=== PATIENT | female | born 1945 | race Caucasian/White ===

== ENCOUNTER 2016-04-05 16:02 | Outpatient (CLI) | payer MEDICARE, OTHER ==
[2016-04-05 16:50] LABS: #Basophils 0.1 thou/uL (0.0-0.2); #Eosinphils 0.5 thou/uL (0.0-0.7); #Lymphocytes 3.5 thou/uL (1.20-3.40); #Monocytes 0.6 thou/uL (0.11-0.59); #Neutrophils 4.2 thou/uL (1.40-6.50); %Basophils 1.1 % (0.0-1.0); %Eosinophils 5.9 % (0.0-10.0); Hematocrit 40.4 % (36.0-47.0); Mean Platelet Volume 7.6 fL (7.4-10.4); Red Blood Cell (RBC) Count 4.17 mill/uL (4.20-5.40); White Blood Cell (WBC) Count 8.9 thou/uL (4.8-10.8)
[2016-04-05 17:01] LABS: ALT (SGPT) 15 U/L (0-55); AST (SGOT) 8 U/L (5-34); Alkaline Phosphatase 58 U/L (40-150); Anion Gap 14 mmol/L (10-20); BUN (Urea Nitrogen) 12 mg/dL (9.8-20.1); Bilirubin, Total 0.3 mg/dL (0.2-1.2); Calc. Creatinine Clearance 0 mL/min (70-130); Calcium 8.8 mg/dL (7.8-10.44); Carbon Dioxide 27 mmol/L (23-31); Chloride 105 mmol/L (98-107); Estimated GFR-MDRD 82; Globulin 2.9 g/dL (2.4-3.5); LDL Cholesterol, Calculated 60 mg/dL; Protein, Total 6.6 g/dL (5.8-8.1)
[2016-04-05 17:03] LABS: Hemoglobin A1c 7.5 % (4.0-6.0)
== END 2016-04-05 16:03 | disposition home or self-care (01) ==
LOC: HPCALD 16:02
PROVIDERS: ATTEND Family Medicine
DX: E11.9 Type 2 diabetes mellitus without complications (principal); I10 Essential (primary) hypertension; E78.5 Hyperlipidemia, unspecified; R53.83 Other fatigue
CPT/HCPCS: 36415; 80053; 80061; 82607; 83036; 84443; 85025

== ENCOUNTER 2016-04-12 14:37 | Emergency (ER) | payer MEDICARE, OTHER ==
[2016-04-12 15:31] LABS: #Basophils 0.1 thou/uL (0.0-0.2); #Eosinphils 0.4 thou/uL (0.0-0.7); #Monocytes 0.6 thou/uL (0.11-0.59); %Basophils 1.3 % (0.0-1.0); %Eosinophils 5.4 % (0.0-10.0); %Monocytes 7.3 % (0.0-10.0); Hematocrit 38.8 % (36.0-47.0); Red Blood Cell (RBC) Count 4.13 mill/uL (4.20-5.40); White Blood Cell (WBC) Count 8.1 thou/uL (4.8-10.8)
[2016-04-12 15:44] LABS: Lactic Acid - Sepsis 1.5 mmol/L (0.5-2.2)
[2016-04-12 15:45] LABS: PTT 29.6 SEC (22.9-36.1); Prothrombin Time 13.7 SEC (12.0-14.7)
[2016-04-12 15:46] LABS: ALT (SGPT) 10 U/L (0-55); AST (SGOT) 10 U/L (5-34); Alkaline Phosphatase 59 U/L (40-150); Anion Gap 14 mmol/L (10-20); BUN (Urea Nitrogen) 13 mg/dL (9.8-20.1); Bilirubin, Total 0.2 mg/dL (0.2-1.2); Calc. Creatinine Clearance 0 mL/min (70-130); Calcium 8.8 mg/dL (7.8-10.44); Carbon Dioxide 26 mmol/L (23-31); Chloride 101 mmol/L (98-107); Estimated GFR-MDRD 67; Globulin 3.1 g/dL (2.4-3.5); Protein, Total 6.7 g/dL (5.8-8.1)
[2016-04-12 15:49] LABS: Troponin I Less than 0.010 ng/mL (< 0.028)
[2016-04-12 16:24] LABS: CK (CPK) 41 U/L (29-168)
[2016-04-12 17:04] LABS: Bilirubin Negative (Negative); Blood, Urine Negative (Negative); Glucose, Urine (Dipstick) Negative (Negative); Ketone, Urine Negative (Negative); Nitrite Negative (Negative); Protein, Urine (Dipstick) Negative (Neg-Trace); Urobilinogen 0.2 mg/dL (0.2-1.0)
[2016-04-12 17:09] LABS: Bacteria/HPF Rare-Few HPF (None Seen); RBC/HPF 0-3 HPF (0-3); Squamous Epithelial 0-3 HPF (0-3); WBC/HPF 0-3 HPF (0-3)
--- NOTE | 2016-04-12 19:04 | PICIS ---
[facility] EMERGENCY RECORD TRIAGE (TueApr 12, 2016 14:39 KMOR) PATIENT: NAME: Elinor Chou, AGE: 70, GENDER: female, : Tue1945, TIME OF GREET: TueApr 12, 2016 14:38, PREFERRED LANGUAGE: Colombian, ETHNICITY: Not or , ECODE BILLING MAP: [facility], SSN: [id number], Zip Code: [address], KG WEIGHT: 101.5, PHONE: , , , PERSON ID: [id number], PAYMENT: X Medicare, PCP: MD Lentz Kyle. (TueApr 12, 2016 14:39 KMOR) COMPLAINT: Shortness of Breath. (TueApr 12, 2016 14:39 KMOR) ADMISSION: URGENCY: 2 Emergent, ADMISSION SOURCE: Home, AMBULANCE: [facility], TRANSPORT: AMBULANCE - [facility], BED: ER -01. (TueApr 12, 2016 14:39 KMOR) ASSESSMENT: Assessment: A&OX4. RR EVEN AND UNLABROED., Symptoms began 4 hours ago. (15:03 KMOR) PAIN: Patient complains of pain described as, aching, on a scale 0-10 patient rates pain as 7, Location BACK. (15:03 KMOR) IMMUNIZATIONS: Flu vaccine up to date, Tetanus not up to date, Pneumococcal vaccine up to date. (15:03 KMOR) SIRS SCORING: Heart Rate 55-109 (0), Temp range 96.8-101.1 (0), respiratory rate 12-24 (0), Mental Status altered: no (0), Infection or Suspected Infection: No. (15:03 KMOR) PROVIDERS: TRIAGE NURSE: Cheri Valadez RN. (TueApr 12, 2016 14:39 KMOR) VITAL SIGNS: BP 126/79, Pulse 62, Resp 20, Temp 97.9, (Oral), Pain 7, O2 Sat 92, on Room Air, Time 04/12/2016 14:38. (14:38 KMOR) PREVIOUS VISIT ALLERGIES: erythromycin, Flexeril, Penicillins. (TueApr 12, 2016 14:39 KMOR) erythromycin, Flexeril, Penicillins. (15:03 KMOR) KNOWN ALLERGIES erythromycin Flexeril Penicillins CURRENT MEDICATIONS (TueApr 13, 2016 07:15 KMOR) Unable to obtain VITAL SIGNS VITAL SIGNS: BP: 126/79, Pulse: 62, Resp: 20, Temp: 97.9 (Oral), Pain: 7, O2 sat: 92 on Room Air, Time: 04/12/2016 14:38. (14:38 KMOR) BP: 123/68, Pulse: 61, Resp: 16, Pain: 7, O2 sat: 99 on 2L Oxygen, Time: 04/12/2016 15:00. (15:00 KMOR) Pulse: 64, Resp: 17, Pain: 7, Time: 04/12/2016 16:04. (16:04 KMOR) BP: 110/46, O2 sat: 100 on 2L Oxygen, Time: 04/12/2016 16:05. (16:05 KMOR) BP: 148/79, Pulse: 62, Resp: 17, Pain: 5, O2 sat: 99 on 2L Oxygen, Time: 04/12/2016 17:01. (17:01 KMOR) BP: 124/43, Pulse: 61, Resp: 15, Pain: sleeping, O2 sat: 99 on 2L Oxygen, Time: 04/12/2016 17:00. (17:00 KMOR) BP: 124/47, Pulse: 61, Resp: 16, Pain: 0, O2 sat: 99 on 2L Oxygen, Time: &a-1R&a+25V*p+0X*g9157Z*c202B*c15G*c2P*p-0X&a-25V&a+1R Name: Elinro Chou : 1945 F70 MedRec: [id number] AcctNum: [id number] Prepared: TueApr 13, 2016 09:28 by Interface Page 1 of 13 pMD [facility] EMERGENCY RECORD 04/12/2016 17:30. (17:30 KMOR) BP: 139/63, Pulse: 63, Resp: 16, Pain: 0, O2 sat: 99 on 2L Oxygen, Time: 04/12/2016 18:30. (18:30 KMOR) NURSING ASSESSMENT: HEAD-TO-TOE (17:12 KMOR) CONSTITUTIONAL: Patient arrives, via stretcher, Unsteady gait, Lift to cart, History obtained from patient, Patient appears comfortable, Patient cooperative, Patient alert, Oriented to person, place and time, Skin warm, Skin dry, Skin normal in color, Mucous membranes pink, Mucous membranes moist, Patient is well-groomed, Patient complains of Shortness of breath, EMS called to house for increased right sided weakness over past 3 days and decreased O2 saturation. Patient reports recently not feeling well. PAIN: aching pain, chronic back, on a scale 0-10 patient rates pain as 5. SKIN: Skin assessment findings include skin warm, Skin dry, Skin normal in color, Inspection findings include: No pressure ulcer to the shoulder, Inspection findings include no pressure ulcer to the elbow, Inspection findings include no pressure ulcer to the heel, Inspection findings include no pressure ulcer, Inspection findings include no pressure ulcer, Inspection findings include redness, to bilateral lower legs, Inspection findings include swelling, to right side of face. NEURO: Pupils equally round and reactive to light, Left pupil 3 mm in size, Right pupil 3 mm in size, Able to close eyes, Face symmetrical, Speech normal, Ptosis, to bilateral eyes, Facial droop, on the right, hx cva, GCS:, Eye opening: (4) - Spontaneous, Verbal: (5) - Oriented/conversive, Motor: (6) - Obeys commands/Spontaneous, GCS Total: 15, Associated with weakness. ENT: Ear assessment findings include ear normal to inspection, Nasal assessment findings include nose normal to inspection, Sinuses normal, Nasal mucosa normal, Mouth and throat assessment findings include mouth inspection normal, Uvula normal, Tonsils normal, Mucous membranes pink, and moist, Able to swallow, Speech normal. RESPIRATORY/CHEST: Lungs auscultated, Breath sounds with rhonchi, to bilateral lower lobes, Respiratory assessment findings include respiratory effort easy, Respirations regular, Conversing normally, Neck and chest exam findings include trachea midline, Chest expansion equal, Chest movement symmetrical, no signs of distress, Associated with cough, loose. CARDIOVASCULAR: Cardiovascular assessment findings include heart rate normal, Heart rhythm normal sinus, Heart sounds normal, S1, S2, Left radial pulse +3(easily palpated, considered normal), Right radial pulse +3(easily palpated, considered normal), Left dorsalis pedis pulse +2(difficult to palpate), Right dorsalis pedis pulse +2(difficult to palpate), Associated with. &a-1R&a+25V*p+0X*s8793M*c202B*c15G*c2P*p-0X&a-25V&a+1R Name: Elinor Chou : 1945 F70 MedRec: [id number] AcctNum: [id number] Prepared: TueApr 13, 2016 09:28 by Interface Page 2 of 13 D [facility] EMERGENCY RECORD ABDOMEN: Abdomen assessment findings include abdomen symmetrical, Abdomen soft, no associated nausea. GENITOURINARY FEMALE: no associated urinary complaints. NOTES: Patient tolerated procedure well. NURSING PROCEDURE: BEDSIDE RADIOLOGY (15:35 KMOR) PATIENT IDENTIFIER: Patient actively involved in identification process, Patient's identity verified by patient stating name, Patient's identity verified by patient stating date. BEDSIDE RADIOLOGY: Portable chest x-ray performed. NOTES: Patient tolerated procedure well. NURSING PROCEDURE: EARLY BREASTFEEDING CARE SPECIALIST (14:39 KMOR) PATIENT IDENTIFIER: Patient actively involved in identification process, Patient's identity verified by patient stating name, Patient's identity verified by patient stating date. EARLY BREASTFEEDING CARE SPECIALIST: Cardiac monitoring indicated for shortness of breath, Patient placed on computer graphic artist, Heart rate: 62, showing normal sinus rhythm, Patient placed on non-invasive blood pressure monitor, with disposable blood pressure cuff applied, Patient placed on continuous pulse oximetry, Adult/pediatric oxisensor applied, Oxygen saturation 91%. NOTES: Patient tolerated procedure well. NURSING PROCEDURE: DISCHARGE NOTE (18:52 [facility]) DISCHARGE: Patient discharged to home, in a wheelchair, family driving, accompanied by other family member, Summary of Care printed/ provided, Patient requested and was provided an electronic copy of Discharge Instructions, Transition record given to patient, Discharge instructions given to patient, Simple or moderate discharge teaching performed, Prescriptions given and instructions on side effects given, Medication reconciliation form given, Above person(s) verbalized understanding of discharge instructions and follow-up care, Patient treated and evaluated by physician. NURSING PROCEDURE: EKG CHART (15:28 KMOR) PATIENT IDENTIFIER: Patient actively involved in identification process, Patient's identity verified by patient stating name, Patient's identity verified by patient stating date. EKG: EKG indicated for complaint of chest pain, 12 lead EKG performed on the left chest, done by VIANCA Alonzo, first EKG. FOLLOW-UP: After procedure, EKG for interpretation given to Dr. Garcia. NOTES: Patient tolerated procedure well. NURSING PROCEDURE: IV PATIENT IDENITIFIER: Patient actively involved in identification process, Patient's identity verified by patient stating name, Patient's identity verified by patient stating date. (15:43 KMOR) &a-1R&a+25V*p+0X*u2369B*c202B*c15G*c2P*p-0X&a-25V&a+1R Name: Elinor Chou : 1945 F70 MedRec: [id number] AcctNum: [id number] Prepared: TueApr 13, 2016 09:28 by Interface Page 3 of 13 pMD [facility] EMERGENCY RECORD IV SITE 1: IV therapy indicated for hydration, IV therapy indicated for medication administration, IV established, to the right wrist, using a 20 gauge catheter, in one attempt, Saline lock established, Flushed with normal saline (mls): 10cc, Labs drawn at time of placement, labeled in the presence of the patient and sent to lab. (15:43 KMOR) FOLLOW-UP SITE 1: After procedure, 2x3 ensure dressing applied, After procedure, no drainage at IV site, After procedure, no swelling at IV site, After procedure, no redness at IV site. (15:43 KMOR) IV discontinued, due to patient being discharged, catheter intact, Notes: Bleeding easily controlled. Site covered with 2X2 gauze and secured with transpore tape. (18:45 JSMI) NOTES: Patient tolerated procedure well. (15:43 KMOR) NURSING PROCEDURE: NURSE NOTES NURSES NOTES: Notes: Patient resting comfortable in bed, eyes closed, RR even and unlabored. family at bedside. arouses easily with voice. (16:04 KMOR) Patient assisted to bathroom with steady gait. (16:16 KMOR) Notes: Dr. Garcia in to discuss possible admission, pt stated she does not want to be admitted. (16:30 KMOR) Notes: Patient sleeping, RR even and unlabored. Family at bedside. Abx started, no blood cultures per ERMD. (17:09 KMOR) NURSING PROCEDURE: OXYGEN THERAPY PATIENT IDENTIFIER: Patient actively involved in identification process, Patient's identity verified by patient stating name, Patient's identity verified by patient stating date. (14:45 KMOR) OXYGEN THERAPY: Oxygen therapy indicated for desaturation, Prior to procedure, breath sounds with rhonchi, Prior to procedure, breath sounds with wheezing, to bilateral lower lobes, Oxygen saturation 91%, by adult/pediatric oxisensor, multiple pulse oximetry reading, 2L oxygen given, via nasal cannula applied, Applied by VIANCA Alonzo. (14:45 KMOR) FOLLOW-UP: After procedure, oxygen saturation 99%. (15:45 KMOR) NOTES: Patient tolerated procedure well. (14:45 KMOR) NURSING PROCEDURE: TRANSPORT TO TESTS (15:43 KMOR) PATIENT IDENTIFIER: Patient actively involved in identification process, Patient's identity verified by patient stating name, Patient's identity verified by patient stating date. TRANSPORT TO TESTS: Transport indicated to facilitate diagnosis, Patient transported to CT scan, via cart, Accompanied by x-ray extractions technician. NURSING PROCEDURE: URINE COLLECTION (16:30 KMOR) PATIENT IDENTIFIER: Patient actively involved in identification process, Patient's identity verified by patient stating name, Patient's identity verified by patient stating date. &a-1R&a+25V*p+0X*u7069V*c202B*c15G*c2P*p-0X&a-25V&a+1R Name: Elinor Chou : 1945 F70 MedRec: [id number] AcctNum: [id number] Prepared: TueApr 13, 2016 09:28 by Interface Page 4 of 13 pMD [facility] EMERGENCY RECORD URINE COLLECTION FEMALE: Urine collected by mid-stream clean catch, Output amount (mL) 150ml, urine yellow in color, and clear, Specimen labeled in the presence of the patient and sent to lab, Specimen obtained for culture labeled in the presence of the patient and sent to lab. ORDER DETAILS Order Name: B type Natriuretic Peptide, Status: Active, Time: 15:18 04/12/2016, User: ABRAHAM, - Ordered for: Sutherland, DO, Piyush, - Entered by: DO Jose Piyush - [facility] Apr 12, 2016 15:18, - Quantity: 1, Order Name: EARLY BREASTFEEDING CARE SPECIALIST ED, Status: Done, Time: 15:25 04/12/2016, User: KMOR, - Ordered for: JoseDO magan, Piyush, - Entered by: DO Jose Piyush - [facility] Apr 12, 2016 15:18, - Quantity: 1, Order Name: Cardiac Profile w/CKMB & Troponin - I, Status: Active, Time: 15:18 04/12/2016, User: MBRI, - Ordered for: Sutherland, DO, Piyush, - Entered by: DO Jose Piyush - [facility] Apr 12, 2016 15:18, - Quantity: 1, Order Name: CATH STRAIGHT ED, Status: Canceled, Time: 16:30 04/12/2016, User: KMOR, - Ordered for: Jose, DO, Piyush, - Entered by: DO Jose Piyush - [facility] Apr 12, 2016 15:18, - Quantity: 1, Order Name: CBC with Differential, Status: Active, Time: 15:18 04/12/2016, User: MBRI, - Ordered for: DO Jose Piyush, - Entered by: DO Garcia Matthew - TueApr 12, 2016 15:18, - Quantity: 1, Order Name: CK (CPK), Status: Active, Time: 15:18 04/12/2016, User: MBRI, - Ordered for: DO Jose, Piyush, - Entered by: DO Jose Piyush - [facility] Apr 12, 2016 15:18, - Quantity: 1, Order Name: Comprehensive Metabolic Panel, Status: Active, Time: 15:18 04/12/2016, User: MBRI, - Ordered for: DO Jose Piyush, - Entered by: DO Garcia Matthew - [facility] Apr 12, 2016 15:18, - Quantity: 1, Order Name: CT Brain WO Con, Status: Active, Time: 15:18 04/12/2016, User: MBRI, - Ordered for: DO Garcia Matthew, - Entered by: DO Garcia Matthew - [facility] Apr 12, 2016 15:18, - Quantity: 1, Order Name: EKG 12 Lead in Emergency Room, Status: Active, Time: 15:18 04/12/2016, User: MBRI, &a-1R&a+25V*p+0X*w8418T*c202B*c15G*c2P*p-0X&a-25V&a+1R Name: Elinor Chou : 1945 F70 MedRec: [id number] AcctNum: [id number] Prepared: TueApr 13, 2016 09:28 by Interface Page 5 of 13 pMD [facility] EMERGENCY RECORD - Ordered for: DO Garcia Matthew, - Entered by: DO Garcia Matthew - [facility] Apr 12, 2016 15:18, - Quantity: 1, Order Name: ERRT Oxygen Usage ER, Status: Active, Time: 15:18 04/12/2016, User: ABRAHAM, - Ordered for: DO Garcia Matthew, - Entered by: DO Garcia Matthew - [facility] Apr 12, 2016 15:18, - Quantity: 1, Order Name: ERRT Pulse Oximeter ER, Status: Active, Time: 15:18 04/12/2016, User: ABRAHAM, - Ordered for: DO Garcia Matthew, - Entered by: DO Garcia Matthew - [facility] Apr 12, 2016 15:18, - Quantity: 1, Order Name: Lactic Acid with repeat, Status: Active, Time: 15:18 04/12/2016, User: MBMERON, - Ordered for: DO Garcia Matthew, - Entered by: DO Garcia Matthew - [facility] Apr 12, 2016 15:18, - Quantity: 1, Order Name: Protime with INR, Status: Active, Time: 15:18 04/12/2016, User: MBRI, - Ordered for: DO Garcia Matthew, - Entered by: DO Garcia Matthew - [facility] Apr 12, 2016 15:18, - Quantity: 1, Order Name: PTT, Status: Active, Time: 15:18 04/12/2016, User: MBRI, - Ordered for: DO Garcia Matthew, - Entered by: DO Garcia Matthew - TueApr 12, 2016 15:18, - Quantity: 1, Order Name: SALINE LOCK, Status: Done, Time: 15:25 04/12/2016, User: JAMES, - Ordered for: DO Garcia Matthew, - Entered by: DO Garcia Matthew - [facility] Apr 12, 2016 15:18, - Quantity: 1, Order Name: Urinalysis w/ Rflx Microscopic, Status: Active, Time: 15:18 04/12/2016, User: ABRAHAM, - Ordered for: DO Garcia Matthew, - Entered by: DO Garcia Matthew - [facility] Apr 12, 2016 15:18, - Quantity: 1, Order Name: XR Chest 1 View Portable, Status: Active, Time: 15:18 04/12/2016, User: ABRAHAM, - Ordered for: DO Garcia Matthew, - Entered by: DO Garcia Matthew - TueApr 12, 2016 15:18, - Quantity: 1. MEDICATION ADMINISTRATION SUMMARY Drug Name: Levaquin in 5 % dextrose, Dose Ordered: 750 mg, Route: IV Piggy Back, Status: Given, Time: 17:08 04/12/2016, Detailed record available in Medication Service section. MEDICATION SERVICE &a-1R&a+25V*p+0X*r9295V*c202B*c15G*c2P*p-0X&a-25V&a+1R Name: Elinor Chou : 1945 F70 MedRec: [id number] AcctNum: [id number] Prepared: TueApr 13, 2016 09:28 by Interface Page 6 of 13 pMD [facility] EMERGENCY RECORD Levaquin in 5 % dextrose: Order: Levaquin in 5 % dextrose (levofloxacin/dextrose 5 % in water) - Dose: 750 mg : IV Piggy Back Ordered by: Piyush Garcia DO Entered by: Piyush Garcia DO TueApr 12, 2016 16:37 , Acknowledged by: Cheri Valadez RN TueApr 12, 2016 16:44 Documented as given by: Cheri Valadez RN TueApr 12, 2016 17:08 Patient, Medication, Dose, Route and Time verified prior to administration. Amount given: 750mg, IV SITE #1 IVPB or drip, initial infusion, Premixed, Connections checked prior to administration, Line traced prior to administration, Catheter placement confirmed via flush prior to administration, IV site without signs or symptoms of infiltration during medication administration, No swelling during administration, No drainage during administration, IV flushed after administration, Correct patient, time, route, dose and medication confirmed prior to administration, Patient advised of actions and side-effects prior to administration, Allergies confirmed and medications reviewed prior to administration, Patient in position of comfort, Side rails up, Cart in lowest position, Family at bedside. : Follow Up : _IV SITE #1:_, Medication infusion discontinued, on TueApr 12, 2016 18:45, Total infusion time IV site 1 1 hour, 40 minutes, ., Total amount infused: 150, IV Discontinued with catheter intact, IV Line flushed after administration. (18:45 JSMI) HPI WEAK-DIZZY (18:31 MBRI) CHIEF COMPLAINT: Patient presents for evaluation of weakness, Patient presents for evaluation of Pt states not feeling well for over a week now. Home health nursing thought that the patient was showing some increased weakness on her right side where she has had long standing issues due to prior CVA event. Pt states having a cough with increasing production of thick, green sputum. HISTORIAN: History provided by patient, History provided by patient's family, History provided by patient's caregiver. LOCATION: Symptoms are generalized. QUALITY: Patient is alert and oriented to person, place and time, [place] coma score is 15, Pain is dull in nature, described as aching. TIME COURSE: Gradual onset of symptoms, 1, weeks ago, Symptoms are worsening. ASSOCIATED WITH: No associated ataxia, No associated chest pain, No associated chills, No associated ear pain, No associated fever, No associated gait disturbance, No associated headache, No associated nausea, No associated palpitations, No associated vomiting, No associated visual changes, No associated upper respiratory infection, Denies any other complaints. EXACERBATED BY: Patient's condition exacerbated by nothing. RELIEVED BY: Patient's condition relieved by nothing. ROS (18:33 MBRI) &a-1R&a+25V*p+0X*j2699K*c202B*c15G*c2P*p-0X&a-25V&a+1R Name: Elinor Chou : 1945 F70 MedRec: [id number] AcctNum: [id number] Prepared: TueApr 13, 2016 09:28 by Interface Page 7 of 13 pMD [facility] EMERGENCY RECORD CONSTITUTIONAL: Historian denies chills, reports fatigue, denies fever, reports weakness. EYES: Negative eye review of systems, Historian denies eye pain, denies eye redness, denies eye discharge. ENT: Negative ears, nose, throat review of systems, Historian denies otalgia, denies otorrhea, denies rhinorrhea, denies sinus pain, denies sore throat. CARDIOVASCULAR: Historian denies chest pain, no radiation, Historian denies diaphoresis, denies dyspnea on exertion, reports edema, denies orthopnea, denies paroxysmal nocturnal dyspnea, denies syncope, denies palpitations. RESPIRATORY: Historian reports cough, reports shortness of breath, reports sputum, denies stridor, denies wheezing. GI: Historian denies abdominal pain, reports appetite changes, denies constipation, denies diarrhea, denies nausea, denies vomiting. GENITOURINARY FEMALE: Historian denies dysuria, denies frequency, denies hematuria, denies incontinence, denies urgency, denies urine output changes. MUSCULOSKELETAL: Historian reports arthralgias, denies back pain, denies deformity, denies fall, denies injury, denies joint redness, denies joint stiffness, denies joint swelling. SKIN: Historian denies cellulitis, denies induration, reports skin lesions. Pt with chronic edematous changes of the kate lower ext along with long-term chronic cellulitis in these areas. This overall has been improving with wound care and abx treatment. NEUROLOGIC: Historian denies confusion, denies dizziness, reports focal weakness, denies headache, denies mental status changes, denies paresthesias, denies vertigo. chronic of the right arm and leg. HEMO/LYMPHATIC: Normal hematologic/lymphatic system review. PSYCHIATRIC: Negative psychiatric review of systems. PAST MEDICAL HISTORY (15:03 KMOR) MEDICAL HISTORY: Flu vaccine up to date, Tetanus not up to date, Pneumococcal vaccine up to date, Notes: "throat cancer" tx with surgery, Past medical history includes cardiac history, coronary artery disease, congestive heart failure, Past medical history includes history of diabetes, Past medical history includes history of hypertension. Past medical history includes cardiac history, congestive heart failure, "Past medical history includes cardiac history, coronary artery disease, congestive heart failure, Past medical history includes history of diabetes, Past medical history includes history of hypertension. Parkinsons. stroke with right sided deficits. FEMALE SURGICAL HISTORY: Surgical history of appendectomy, Surgical history of hernia repair, Surgical history of hysterectomy, Surgical history of tubal ligation. .lumpectomy on right &a-1R&a+25V*p+0X*r9938R*c202B*c15G*c2P*p-0X&a-25V&a+1R Name: Elinor Chou : 1945 F70 MedRec: [id number] AcctNum: [id number] Prepared: TueApr 13, 2016 09:28 by Interface Page 8 of 13 pMD [facility] EMERGENCY RECORD shoulder. PSYCHIATRIC HISTORY: Psychiatric history includes, depression. SOCIAL HISTORY: Patient currently uses tobacco, smokes cigarettes, 4-5 cigs/day. Patient denies alcohol use, Patient denies drug use,. PHYSICAL EXAM (18:35 MBRI) CONSTITUTIONAL: Vital signs reviewed, Patient afebrile, Pulse normal, Blood pressure normal, Respiratory rate normal, Patient appears non toxic, Patient appears pain free, Patient alert and oriented to person, place and time. HEAD: Head exam included findings of head atraumatic, normocephalic. EYES: Eye exam included findings of eyelids normal to inspection, Pupils equally round and reactive to light, Extraocular muscles intact. ENT: Ear exam normal, Nose exam normal, Pharynx exam normal, Mouth exam normal. NECK: Neck exam included findings of normal range of motion, Trachea midline, no tenderness, no abrasions, no contusions, no ecchymosis. RESPIRATORY CHEST: Respiratory exam included findings of no respiratory distress, Breath sounds clear, No wheezing, Rales present, to the right middle lobe, to the left lower lobe, to the right lower lobe, No rhonchi, Breath sounds not diminished, Chest exam included findings of chest movement symmetrical. CARDIOVASCULAR: Cardiovascular exam included findings of heart rate regular rate and rhythm, Heart sounds normal, normal S1, normal S2, no murmurs, Carotids normal, Pedal pulses normal. ABDOMEN FEMALE: Abdominal exam included findings of abdomen nontender, no distension, no pulsatile masses, no peritoneal signs, no rigidity, no guarding, no rebound. BACK: Back exam included findings of normal inspection, no tenderness. UPPER EXTREMITY: Upper extremity exam included findings of inspection normal, Range of motion normal, Radial pulse normal, no cyanosis, no clubbing, no edema. LOWER EXTREMITY: Range of motion normal, Motor strength, 3/5 on the left, 4/5 on the right, Sensation intact, Pedal pulse normal, no cyanosis, no clubbing, Edema present, to bilateral lower extremities, pitting, no calf tenderness, chornic skin changes noted. Numerous healing lesions noted. No acute infection noted. NEURO: [place] coma scale 15, Neuro exam findings include patient oriented to person, place and time, Speech normal, Gait normal, Memory normal, Cranial nerves intact, no focal motor deficits, no focal sensory deficits, no cerebellar deficits, no nystagmus. SKIN: Skin exam included findings of skin warm, dry, and normal &a-1R&a+25V*p+0X*u6827B*c202B*c15G*c2P*p-0X&a-25V&a+1R Name: Elinor Chou : 1945 F70 MedRec: [id number] AcctNum: [id number] Prepared: TueApr 13, 2016 09:28 by Interface Page 9 of 13 pMD [facility] EMERGENCY RECORD in color. PSYCHIATRIC: Psychiatric exam included findings of patient oriented to person place and time, Normal affect. LAB INTERPRETATION (16:29 MBRI) INTERPRETATION: I reviewed the lab results. EVENTS TRANSFER: Triage to Emergency Emergency Room -01. (14:39 KMOR) Removed from Emergency Emergency Room -01. (18:49 KMOR) EKG INTERPRETATION (15:35 MBRI) 12 LEAD EKG INTERPRETATION: 12 lead EKG interpreted by Emergency Department Physician at time of study, 12 lead EKG shows, first degree AV Block, Rate (beats per minute): 60, with no ectopics, Conduction normal, ST segments normal, T waves normal, [place] normal. O2SAT INTERPRETATION (14:44 MBRI) O2SAT: Oxygen saturation interpretation: Low normal, Intervention required: patient observed, Intervention required: Oxygen administration. DOCTOR NOTES (16:39 MBRI) TEXT: Patient has been thoroughly evaluated and monitored. The patients CT Head was negative and the patients symptoms are not consistent with CVA, new-onset TIA, or SAH at this time. Patient has a stable neurological exam and monitoring here shows no changes. I will discharge home with follow-up. Explanation and discussion of findings and plan for follow-up have been discussed with the patient and family and questions answered. The patient was instructed to return to the ED if a change in status occurs prior to PCP follow-up. PROBLEM LIST No recorded problems DIAGNOSIS (16:47 MBRI) FINAL: PRIMARY: PNEUMONIA UNSPECIFIED ORGANISM. DISPOSITION PATIENT: Disposition Type: Discharge, Disposition: *Discharge Home, Condition: Improved. (17:28 MBRI) Patient left the department. (18:49 KMOR) INSTRUCTION (17:30 MBRI) DISCHARGE: PNEUMONIA (ADULT), WEAKNESS, UNK CAUSE. FOLLOWUP: [facility], [address] [place] [address], , Follow up with Primary Care Physician as scheduled. &a-1R&a+25V*p+0X*z5008I*c202B*c15G*c2P*p-0X&a-25V&a+1R Name: Elinor Chou : 1945 F70 MedRec: [id number] AcctNum: [id number] Prepared: TueApr 13, 2016 09:28 by Interface Page 10 of 13 pMD [facility] EMERGENCY RECORD SPECIAL: Please return for any further issues or concerns, we would be happy to see you. We hope you feel better soon. Follow-up with your PCP on Apr 16 at 10am. PRESCRIPTION (17:30 MBRI) Levaquin oral: TABLET : 750 mg : ORAL : Quantity: 1 Unit: tab(s) Route: ORAL Schedule: once a day Dispense: 6 May substitute. Refills: No Refills . NOTES: No refills. Mucinex DM: TABLET,EXTENDED RELEASE MULTIPHASE 12 HR : 1,200 mg-60 mg : ORAL : Quantity: 1 Unit: tab(s) Route: ORAL Schedule: every 12 hours Dispense: 20 May substitute. Refills: No Refills . NOTES: ^s=No refills No refills. Tessalon Perles: CAPSULE (HARD, SOFT, ETC.) : 100 mg : ORAL : Quantity: 1 Unit: cap(s) Route: ORAL Schedule: every 8 hours PRN Dispense: 21 May substitute. Refills: No Refills . NOTES: ^s=^s=No refills No refills No refills. IMAGING *EKG: Image captured from scanner. (18:13 KMOR) *SUPPLY CHARGE SHEET: Image captured from scanner. (18:54 JSMI) *DISCHARGE INSTRUCTIONS RECEIPT: Image captured from scanner. (18:54 JSMI) *RUN SHEET -EMS: Image captured from scanner. (18:54 JSMI) ADMIN DIGITAL SIGNATURE: VIANCA Valadez, Cheri. (TueApr 13, 2016 07:16 KMOR) DO Garcia Matthew. (TueApr 13, 2016 09:21 MBRI) RESULTS LABORATORY: CK (CPK) Collection DT: TueApr 12, 2016 15:28, CK (CPK) 41 U/L, Range (29-168). (16:30 MBRI) Comprehensive Metabolic Panel Collection DT: TueApr 12, 2016 15:28, Sodium 136 mmol/L, Range (136-145), Potassium 4.5 mmol/L, Range (3.5-5.1), Chloride 101 mmol/L, Range (98-107), Carbon Dioxide 26 mmol/L, Range (23-31), Anion Gap 14 mmol/L, Range (10-20), BUN (Urea Nitrogen) 13 mg/dL, Range (9.8-20.1), Creatinine 0.84 mg/dL, Range (0.6-1.1), Estimated GFR-MDRD 67 , Reference Range for Estimated GFR: Greater than 90, mL/min/1.73 m2 &a-1R&a+25V*p+0X*t1200O*c202B*c15G*c2P*p-0X&a-25V&a+1R Name: Elinor Chou : 1945 F70 MedRec: [id number] AcctNum: [id number] Prepared: TueApr 13, 2016 09:28 by Interface Page 11 of 13 pMD [facility] EMERGENCY RECORD NOTE: The MDRD equation has not been validated for use, with the elderly (over 70 years of age), women, patients with, serious comorbid condition or persons with extremes of body size, muscle, mass, or nutritional status. , *Glucose 250 - H mg/dL, Range (80-115), Calcium 8.8 mg/dL, Range (7.8-10.44), Bilirubin, Total 0.2 mg/dL, Range (0.2-1.2), Protein, Total 6.7 g/dL, Range (5.8-8.1), NOTE: Plasma values are generally 0.3 to 0.5 g/dL higher than serum values, due to the presence of fibrinogen. , Albumin 3.6 g/dL, Range (3.4-4.8), Globulin 3.1 g/dL, Range (2.4-3.5), Alb/Glob Ratio 1.2 g/dL, Range (1.2-2.2), Alkaline Phosphatase 59 U/L, Range (40-150), AST (SGOT) 10 U/L, Range (5-34), ALT (SGPT) 10 U/L, Range (0-55). (16:30 MBRI) B type Natriuretic Peptide Collection DT: TueApr 12, 2016 15:28, *B type Natriuretic Peptide 132.8 - H pg/mL, Range (0-100). (16:30 MBRI) Cardiac Profile w/CKMB & TropI Collection DT: TueApr 12, 2016 15:28, CKMB 2.0 ng/mL, Range (0-6.6), Troponin I Less than 0.010 ng/mL, Range (< 0.028), Reference Range , 0.00 - 0.028 ng/mL Negative 0.029 - 0.29 ng/mL , Indeterminate Greater or Equal to 0.3 ng/mL Strongly suggests DC , . (16:30 MBRI) PTT Collection DT: TueApr 12, 2016 15:28, See comment below , Anticoagulant? NONE Medical Necessity SUSPECT COAGULOPATHY , PTT 29.6 SEC, Range (22.9-36.1). (16:30 MBRI) Protime with INR Collection DT: TueApr 12, 2016 15:28, See comment below , Anticoagulant? NONE Medical Necessity SUSPECT COAGULOPATHY , Prothrombin Time 13.7 SEC, Range (12.0-14.7), INR-International Normal Ratio 1.0 , ATTENTION: READ CAREFULLY , The, recommended therapeutic ranges for oral anticoagulant treatments are: , , Low Intensity: 1.5 - 2.0 Moderate Intensity: 2.0, - 3.0 High Intensity (1): 2.5 - 3.5 &a-1R&a+25V*p+0X*c8183X*c202B*c15G*c2P*p-0X&a-25V&a+1R Name: Elinor Chou : 1945 F70 MedRec: [id number] AcctNum: [id number] Prepared: TueApr 13, 2016 09:28 by Interface Page 12 of 13 pMD [facility] EMERGENCY RECORD High, Intensity (2): 3.0 - 4.0 CRITICAL: >, 4.0 . (16:30 MBRI) Lactic Acid for Sepsis Collection DT: TueApr 12, 2016 15:28, Lactic Acid - Sepsis 1.5 mmol/L, Range (0.5-2.2). (16:30 MBRI) CBC with Differential Collection DT: TueApr 12, 2016 15:28, White Blood Cell (WBC) Count 8.1 thou/uL, Range (4.8-10.8), *Red Blood Cell (RBC) Count 4.13 - L mill/uL, Range (4.20-5.40), Hemoglobin 12.2 g/dL, Range (12.0-16.0), Hematocrit 38.8 %, Range (36.0-47.0), Mean Corpuscular Volume 94.1 fl, Range (81.0-99.0), Mean Corpuscular Hemoglobin 29.4 pg, Range (27.0-31.0), *Mean Corpuscular HGB CONC 31.3 - L g/dL, Range (32.0-36.0), *RBC Distribution Width 15.0 - H %, Range (11.5-14.5), Platelet Count 138 thou/uL, Range (130-400), Mean Platelet Volume 9.0 fL, Range (7.4-10.4), %Neutrophils 48.6 %, Range (42.0-75.0), %Lymphocytes 37.4 %, Range (21.0-51.0), %Monocytes 7.3 %, Range (0.0-10.0), %Eosinophils 5.4 %, Range (0.0-10.0), *%Basophils 1.3 - H %, Range (0.0-1.0), #Neutrophils 4.0 thou/uL, Range (1.40-6.50), #Lymphocytes 3.0 thou/uL, Range (1.20-3.40), *#Monocytes 0.6 - H thou/uL, Range (0.11-0.59), #Eosinphils 0.4 thou/uL, Range (0.0-0.7), #Basophils 0.1 thou/uL, Range (0.0-0.2). (16:30 MBRI) Urine Microscopic Collection DT: TueApr 12, 2016 17:04, RBC/HPF 0-3 HPF, Range (0-3), WBC/HPF 0-3 HPF, Range (0-3), Squamous Epithelial 0-3 HPF, Range (0-3), Bacteria/HPF Rare-Few HPF, Range (None Seen). (17:27 MBRI) Urinalysis w/ Rflx Microscopic Collection DT: TueApr 12, 2016 17:04, Color Yellow , Range (Yellow), Clarity Clear , Range (Clear), Specific Barto, Urine 1.015 , Range (1.005-1.030), pH, Urine 6.0 , Range (5.0-9.0), *Leukocyte Small - H , Range (Negative), Nitrite Negative , Range (Negative), Protein, Urine (Dipstick) Negative mg/dL, Range (Neg-Trace), Glucose, Urine (Dipstick) Negative mg/dL, Range (Negative), Ketone, Urine Negative mg/dL, Range (Negative), Urobilinogen 0.2 mg/dL, Range (0.2-1.0), Bilirubin Negative , Range (Negative), Blood, Urine Negative , Range (Negative). (17:27 MBRI) Bond: JOSEMI=VIANCA Garcia, Trish KMOR=VIANCA Valadze, Cheri MBRI=DO Garcia Matthew &a-1R&a+25V*p+0X*k1404J*c202B*c15G*c2P*p-0X&a-25V&a+1R Name: Elinor Chou : 1945 F70 MedRec: [id number] AcctNum: [id number] Prepared: TueApr 13, 2016 09:28 by Interface Page 13 of 13 pMD [facility] MEDICATION RECONCILIATION You were seen in the Emergency Department on: TueApr 12, 2016 KNOWN ALLERGIES erythromycin Flexeril Penicillins MEDICATIONS GIVEN WHILE IN THE EMERGENCY DEPARTMENT Levaquin in 5 % dextrose (levofloxacin/dextrose 5 % in water) - Dose: 750 milligram(s) : IV Piggy Back HOME MEDICATIONS Unable to obtain Notes from the emergency department Reviewed with patient PRESCRIPTIONS (3) Printed (3) Levaquin oral : TABLET : 750 mg : ORAL Quantity: 1, Unit: tab(s), Route: ORAL, Schedule: once a day, Dispense: 6 Mucinex DM : TABLET,EXTENDED RELEASE MULTIPHASE 12 HR : 1,200 mg-60 mg : ORAL Quantity: 1, Unit: tab(s), Route: ORAL, Schedule: every 12 hours, Dispense: 20 &a-1R&a+25V*p+0X*k8487O*c202B*c15G*c2P*p-0X&a-25V&a+1R Name: Elinor Chou : 1945 F70 MedRec: [id number] AcctNum: [id number] Prepared: Abilio Apr 13, 2016 09:28 by Interface pMD MTDD
--- NOTE | 2016-04-12 19:11 | ERRECORD ---
[facility] EMERGENCY RECORD HPI WEAK-DIZZY (18:31 MBRI) CHIEF COMPLAINT: Patient presents for evaluation of weakness, Patient presents for evaluation of Pt states not feeling well for over a week now. Home health nursing thought that the patient was showing some increased weakness on her right side where she has had long standing issues due to prior CVA event. Pt states having a cough with increasing production of thick, green sputum. HISTORIAN: History provided by patient, History provided by patient's family, History provided by patient's caregiver. LOCATION: Symptoms are generalized. QUALITY: Patient is alert and oriented to person, place and time, [place] coma score is 15, Pain is dull in nature, described as aching. TIME COURSE: Gradual onset of symptoms, 1, weeks ago, Symptoms are worsening. ASSOCIATED WITH: No associated ataxia, No associated chest pain, No associated chills, No associated ear pain, No associated fever, No associated gait disturbance, No associated headache, No associated nausea, No associated palpitations, No associated vomiting, No associated visual changes, No associated upper respiratory infection, Denies any other complaints. EXACERBATED BY: Patient's condition exacerbated by nothing. RELIEVED BY: Patient's condition relieved by nothing. ROS (18:33 MBRI) CONSTITUTIONAL: Historian denies chills, reports fatigue, denies fever, reports weakness. EYES: Negative eye review of systems, Historian denies eye pain, denies eye redness, denies eye discharge. ENT: Negative ears, nose, throat review of systems, Historian denies otalgia, denies otorrhea, denies rhinorrhea, denies sinus pain, denies sore throat. CARDIOVASCULAR: Historian denies chest pain, no radiation, Historian denies diaphoresis, denies dyspnea on exertion, reports edema, denies orthopnea, denies paroxysmal nocturnal dyspnea, denies syncope, denies palpitations. RESPIRATORY: Historian reports cough, reports shortness of breath, reports sputum, denies stridor, denies wheezing. GI: Historian denies abdominal pain, reports appetite changes, denies constipation, denies diarrhea, denies nausea, denies vomiting. GENITOURINARY FEMALE: Historian denies dysuria, denies frequency, denies hematuria, denies incontinence, denies urgency, denies urine output changes. MUSCULOSKELETAL: Historian reports arthralgias, denies back pain, denies deformity, denies fall, denies injury, denies joint redness, denies joint stiffness, denies joint swelling. SKIN: Historian denies cellulitis, denies induration, reports skin lesions. Pt with chronic edematous &a-1R&a+25V*p+0X*g8695N*c202B*c15G*c2P*p-0X&a-25V&a+1R Name: Elinor Chou : 1945 F70 MedRec: [id number] AcctNum: [id number] Prepared: TueApr 13, 2016 09:28 by Interface Page 1 of 5 pMD [facility] EMERGENCY RECORD changes of the kate lower ext along with long-term chronic cellulitis in these areas. This overall has been improving with wound care and abx treatment. NEUROLOGIC: Historian denies confusion, denies dizziness, reports focal weakness, denies headache, denies mental status changes, denies paresthesias, denies vertigo. chronic of the right arm and leg. HEMO/LYMPHATIC: Normal hematologic/lymphatic system review. PSYCHIATRIC: Negative psychiatric review of systems. PAST MEDICAL HISTORY (15:03 KMOR) MEDICAL HISTORY: Flu vaccine up to date, Tetanus not up to date, Pneumococcal vaccine up to date, Notes: "throat cancer" tx with surgery, Past medical history includes cardiac history, coronary artery disease, congestive heart failure, Past medical history includes history of diabetes, Past medical history includes history of hypertension. Past medical history includes cardiac history, congestive heart failure, "Past medical history includes cardiac history, coronary artery disease, congestive heart failure, Past medical history includes history of diabetes, Past medical history includes history of hypertension. Parkinsons. stroke with right sided deficits. FEMALE SURGICAL HISTORY: Surgical history of appendectomy, Surgical history of hernia repair, Surgical history of hysterectomy, Surgical history of tubal ligation. .lumpectomy on right shoulder. PSYCHIATRIC HISTORY: Psychiatric history includes, depression. SOCIAL HISTORY: Patient currently uses tobacco, smokes cigarettes, 4-5 cigs/day. Patient denies alcohol use, Patient denies drug use,. KNOWN ALLERGIES erythromycin Flexeril Penicillins CURRENT MEDICATIONS (TueApr 13, 2016 07:15 KMOR) Unable to obtain VITAL SIGNS VITAL SIGNS: BP: 126/79, Pulse: 62, Resp: 20, Temp: 97.9 (Oral), Pain: 7, O2 sat: 92 on Room Air, Time: 04/12/2016 14:38. (14:38 KMOR) BP: 123/68, Pulse: 61, Resp: 16, Pain: 7, O2 sat: 99 on 2L Oxygen, Time: 04/12/2016 15:00. (15:00 KMOR) Pulse: 64, Resp: 17, Pain: 7, Time: 04/12/2016 16:04. (16:04 KMOR) BP: 110/46, O2 sat: 100 on 2L Oxygen, Time: 04/12/2016 16:05. (16:05 KMOR) BP: 148/79, Pulse: 62, Resp: 17, Pain: 5, O2 sat: 99 on 2L Oxygen, Time: 04/12/2016 17:01. (17:01 KMOR) BP: 124/43, Pulse: 61, Resp: 15, Pain: sleeping, O2 sat: 99 on 2L Oxygen, &a-1R&a+25V*p+0X*e8166B*c202B*c15G*c2P*p-0X&a-25V&a+1R Name: Elinor Chou : 1945 F70 MedRec: [id number] AcctNum: [id number] Prepared: Abilio Apr 13, 2016 09:28 by Interface Page 2 of 5 pMD [facility] EMERGENCY RECORD Time: 04/12/2016 17:00. (17:00 KMOR) BP: 124/47, Pulse: 61, Resp: 16, Pain: 0, O2 sat: 99 on 2L Oxygen, Time: 04/12/2016 17:30. (17:30 KMOR) BP: 139/63, Pulse: 63, Resp: 16, Pain: 0, O2 sat: 99 on 2L Oxygen, Time: 04/12/2016 18:30. (18:30 KMOR) PHYSICAL EXAM (18:35 MBRI) CONSTITUTIONAL: Vital signs reviewed, Patient afebrile, Pulse normal, Blood pressure normal, Respiratory rate normal, Patient appears non toxic, Patient appears pain free, Patient alert and oriented to person, place and time. HEAD: Head exam included findings of head atraumatic, normocephalic. EYES: Eye exam included findings of eyelids normal to inspection, Pupils equally round and reactive to light, Extraocular muscles intact. ENT: Ear exam normal, Nose exam normal, Pharynx exam normal, Mouth exam normal. NECK: Neck exam included findings of normal range of motion, Trachea midline, no tenderness, no abrasions, no contusions, no ecchymosis. RESPIRATORY CHEST: Respiratory exam included findings of no respiratory distress, Breath sounds clear, No wheezing, Rales present, to the right middle lobe, to the left lower lobe, to the right lower lobe, No rhonchi, Breath sounds not diminished, Chest exam included findings of chest movement symmetrical. CARDIOVASCULAR: Cardiovascular exam included findings of heart rate regular rate and rhythm, Heart sounds normal, normal S1, normal S2, no murmurs, Carotids normal, Pedal pulses normal. ABDOMEN FEMALE: Abdominal exam included findings of abdomen nontender, no distension, no pulsatile masses, no peritoneal signs, no rigidity, no guarding, no rebound. BACK: Back exam included findings of normal inspection, no tenderness. UPPER EXTREMITY: Upper extremity exam included findings of inspection normal, Range of motion normal, Radial pulse normal, no cyanosis, no clubbing, no edema. LOWER EXTREMITY: Range of motion normal, Motor strength, 3/5 on the left, 4/5 on the right, Sensation intact, Pedal pulse normal, no cyanosis, no clubbing, Edema present, to bilateral lower extremities, pitting, no calf tenderness, chornic skin changes noted. Numerous healing lesions noted. No acute infection noted. NEURO: Nuris coma scale 15, Neuro exam findings include patient oriented to person, place and time, Speech normal, Gait normal, Memory normal, Cranial nerves intact, no focal motor deficits, no focal sensory deficits, no cerebellar deficits, no nystagmus. SKIN: Skin exam included findings of skin warm, dry, and normal in color. &a-1R&a+25V*p+0X*m8518X*c202B*c15G*c2P*p-0X&a-25V&a+1R Name: Elinor Chou : 1945 F70 MedRec: [id number] AcctNum: [id number] Prepared: Abilio Apr 13, 2016 09:28 by Interface Page 3 of 5 pMD [facility] EMERGENCY RECORD PSYCHIATRIC: Psychiatric exam included findings of patient oriented to person place and time, Normal affect. EKG INTERPRETATION (15:35 MBRI) 12 LEAD EKG INTERPRETATION: 12 lead EKG interpreted by Emergency Department Physician at time of study, 12 lead EKG shows, first degree AV Block, Rate (beats per minute): 60, with no ectopics, Conduction normal, ST segments normal, T waves normal, [place] normal. MEDICATION ADMINISTRATION SUMMARY Drug Name: Levaquin in 5 % dextrose, Dose Ordered: 750 mg, Route: IV Piggy Back, Status: Given, Time: 17:08 04/12/2016, Detailed record available in Medication Service section. DOCTOR NOTES (16:39 MBRI) TEXT: Patient has been thoroughly evaluated and monitored. The patients CT Head was negative and the patients symptoms are not consistent with CVA, new-onset TIA, or SAH at this time. Patient has a stable neurological exam and monitoring here shows no changes. I will discharge home with follow-up. Explanation and discussion of findings and plan for follow-up have been discussed with the patient and family and questions answered. The patient was instructed to return to the ED if a change in status occurs prior to PCP follow-up. PROBLEM LIST No recorded problems DIAGNOSIS (16:47 MBRI) FINAL: PRIMARY: PNEUMONIA UNSPECIFIED ORGANISM. PRESCRIPTION (17:30 MBRI) Levaquin oral: TABLET : 750 mg : ORAL : Quantity: 1 Unit: tab(s) Route: ORAL Schedule: once a day Dispense: 6 May substitute. Refills: No Refills . NOTES: No refills. Mucinex DM: TABLET,EXTENDED RELEASE MULTIPHASE 12 HR : 1,200 mg-60 mg : ORAL : Quantity: 1 Unit: tab(s) Route: ORAL Schedule: every 12 hours Dispense: 20 May substitute. Refills: No Refills . NOTES: ^s=No refills No refills. Testammy Perles: CAPSULE (HARD, SOFT, ETC.) : 100 mg : ORAL : Quantity: 1 Unit: cap(s) Route: ORAL Schedule: every 8 hours PRN Dispense: 21 May substitute. Refills: No Refills . NOTES: ^s=^s=No refills No refills &a-1R&a+25V*p+0X*r1274B*c202B*c15G*c2P*p-0X&a-25V&a+1R Name: Elinor Chou : 1945 70 MedRec: [id number] AcctNum: [id number] Prepared: TueApr 13, 2016 09:28 by Interface Page 4 of 5 pMD [facility] EMERGENCY RECORD No refills. DISPOSITION PATIENT: Disposition Type: Discharge, Disposition: *Discharge Home, Condition: Improved. (17:28 MBRI) Patient left the department. (18:49 KMOR) Bond: KMOR=VIANCA Valadez, Cheri MBRI=DO Garcia Matthew &a-1R&a+25V*p+0X*d5910Y*c202B*c15G*c2P*p-0X&a-25V&a+1R Name: Elinor Chou : 1945 70 MedRec: [id number] AcctNum: [id number] Prepared: TueApr 13, 2016 09:28 by Interface Page 5 of 5 pMD MTDD
--- NOTE | 2016-04-12 20:01 | RAD ---
PORTABLE CHEST: Date: 04-12-16 An AP portable film at 1529 is compared with an 01-18-16 study. FINDINGS: The patient is turned significantly to the side which distorts the image and makes it difficult to s ee all portions of the lungs well. Moderate cardiomegaly is present. There is no clear finding of CHF, however. There is some streaki ng to the left of the heart. This was present before but with the patient being turned it is diffic ult to assess if it is new or old. It is certainly no worse than before and probably better. IMPRESSION: Cardiomegaly and left basilar streaking. Follow up PA and lateral views would be very helpful in th is patient as many of these findings could be chronic. POS: HOME
--- NOTE | 2016-04-12 20:16 | CT ---
CT OF THE BRAIN WITHOUT CONTRAST: Date: 04-12-16 Comparison: 01-16-16 FINDINGS: The ventricles are normal in size with no shift. No intracranial bleeding, mass or edema or sign of acute stroke was found. A small area of encephalomalacia is seen between the left insular cortex a nd the internal capsule consistent with a history of a prior stroke. There were no findings strongl y suggestive of an acute event, though an MRI would be much more sensitive to such. The calvarium a ppears normal. IMPRESSION: Old left sided stroke but no acute intracranial findings. POS: HOME
== END 2016-04-12 18:42 | disposition home or self-care (01) ==
LOC: BURERS 14:37
DX: J18.9 Pneumonia, unspecified organism (principal); I11.0 Hypertensive heart disease with heart failure; I50.9 Heart failure, unspecified; I25.10 Atherosclerotic heart disease of native coronary artery without angina pectoris; E11.9 Type 2 diabetes mellitus without complications; F32.9 Major depressive disorder, single episode, unspecified; G20 Parkinson's disease; F17.210 Nicotine dependence, cigarettes, uncomplicated; Z98.51 Tubal ligation status; Z86.73 Personal history of transient ischemic attack (TIA), and cerebral infarction without residual deficits
CPT/HCPCS: 70450; 71010; 80053; 81003; 81015; 82550; 82553; 83605; 83880; 84484; 85025; 85610; 85730; 93005; 94760; 96365; 96366; J1956

== ENCOUNTER 2016-05-31 19:18 | Emergency (ER) | payer MEDICARE, OTHER ==
[~2016-05-31 19:18] MED LIST: Iopamidol 370 76% 100 ML VIAL ONE
[2016-05-31 20:19] LABS: #Basophils 0.1 thou/uL (0.0-0.2); #Eosinphils 0.6 thou/uL (0.0-0.7); #Lymphocytes 3.2 thou/uL (1.20-3.40); #Monocytes 0.7 thou/uL (0.11-0.59); #Neutrophils 4.3 thou/uL (1.40-6.50); %Basophils 1.4 % (0.0-1.0); %Eosinophils 6.4 % (0.0-10.0); %Lymphocytes 36.6 % (21.0-51.0); %Monocytes 7.4 % (0.0-10.0); %Neutrophils 48.4 % (42.0-75.0); Hemoglobin 13.2 g/dL (12.0-16.0); Mean Corpuscular HGB CONC 32.2 g/dL (32.0-36.0); Mean Corpuscular Hemoglobin 30.5 pg (27.0-31.0); Mean Corpuscular Volume 94.7 fl (81.0-99.0); Mean Platelet Volume 9.3 fL (7.4-10.4); Platelet Count 148 thou/uL (130-400); RBC Distribution Width 14.4 % (11.5-14.5); Red Blood Cell (RBC) Count 4.33 mill/uL (4.20-5.40); White Blood Cell (WBC) Count 8.8 thou/uL (4.8-10.8)
[2016-05-31 20:32] LABS: ALT (SGPT) 8 U/L (0-55); AST (SGOT) 14 U/L (5-34); Albumin 3.6 g/dL (3.4-4.8); Alkaline Phosphatase 64 U/L (40-150); Anion Gap 13 mmol/L (10-20); BUN (Urea Nitrogen) 12 mg/dL (9.8-20.1); Bilirubin, Total 0.3 mg/dL (0.2-1.2); Calc. Creatinine Clearance 0 mL/min (70-130); Calcium 8.9 mg/dL (7.8-10.44); Carbon Dioxide 24 mmol/L (23-31); Chloride 101 mmol/L (98-107); Estimated GFR-MDRD 73; Globulin 3.3 g/dL (2.4-3.5); Glucose 161 mg/dL (80-115); Lipase 15 U/L (8-78); Potassium 4.4 mmol/L (3.5-5.1); Protein, Total 6.9 g/dL (5.8-8.1); Sodium 134 mmol/L (136-145)
--- NOTE | 2016-05-31 23:07 | CT ---
CT ABDOMEN AND PELVIS WITH IV CONTRAST: Date: 05-31-[address] of the abdomen and pelvis was done for evaluation of abdominal pain. Axial slices were acq uired and then coronal reconstructions were done. FINDINGS: The lung bases are clear except for some minor scarring. The liver seems a little generous in size, but not much different than it was where it was seen in part on an old CT angio of the chest from . The spleen, pancreas, adrenal glands, and kidneys showed no acute findings. A few subcentime ter cysts are suggested in the right kidney. No hydronephrosis, solid mass, or calcification was see n. The gallbladder is quite large measuring about 10 cm in length. There is probably some sludge in it, though tiny gallstones would be difficult to exclude without an ultrasound. There is no obvious inflammatory change around the gallbladder. The abdominal aorta is normal in caliber and partially c alcified. The bowel is nondistended with no sign of obstruction or inflammatory change. No free air or free fl uid was seen. There is a 6.5 cm left adnexal cyst. This is immediately adjacent to and abutting the bladder. I do not believe that it a large bladder diverticulum, but is most likely associated with the ovary itsel f. Further work up of this finding is crucial to rule out more significant disease such as neoplasia . Ultrasound is recommended. The right adnexal region showed no mass or cyst. No free fluid was seen in the pelvis. There is no inflammatory change in the pelvis. The patient's peniculus is grossly edematous and reticulated, such as might be seen with edema or in flammation. Finally, there is a large hiatal hernia present with a large amount of the stomach herniated into th e chest. This is a long-standing finding and was seen on the prior CT chest. IMPRESSION: 1. Large hiatal hernia, long-standing. 2. Large gallbladder with sludge. Elective ultrasound to rule out stones suggested. 3. Large amount of edema or inflammatory change in the patient's peniculus. 4. 6.5 cm left adnexal cyst. See discussion above. Ultrasound needed next to evaluate further. Cysti c adnexal changes in this age group can sometimes be neoplastic in nature. All findings discussed with Dr. Sousa at 210 on 05-31-16. POS: HOME
== END 2016-05-31 21:25 | disposition home or self-care (01) ==
LOC: BURERS 19:18
DX: M79.3 Panniculitis, unspecified (principal); I50.9 Heart failure, unspecified; I25.10 Atherosclerotic heart disease of native coronary artery without angina pectoris; E11.9 Type 2 diabetes mellitus without complications; I10 Essential (primary) hypertension; F32.9 Major depressive disorder, single episode, unspecified; F17.210 Nicotine dependence, cigarettes, uncomplicated; Z79.899 Other long term (current) drug therapy; Z79.84 Long term (current) use of oral hypoglycemic drugs; Z79.82 Long term (current) use of aspirin
CPT/HCPCS: 74177; 80053; 83605; 83690; 85025

== ENCOUNTER 2016-07-20 14:25 | Emergency (ER) | payer MEDICARE, OTHER ==
[2016-07-20 15:06] LABS: %Eosinophils 5.4 % (0.0-10.0); %Monocytes 8.4 % (0.0-10.0); %Neutrophils 57.2 % (42.0-75.0); Hemoglobin 12.8 g/dL (12.0-16.0); Mean Corpuscular Volume 93.4 fL (81.0-99.0); Platelet Count 197 thou/uL (130-400); RBC Distribution Width 15.8 % (11.5-14.5); Red Blood Cell (RBC) Count 4.42 mill/uL (4.20-5.40); White Blood Cell (WBC) Count 9.2 thou/uL (4.8-10.8)
[2016-07-20 15:07] LABS: #Basophils 0.1 thou/uL (0.0-0.2); #Eosinphils 0.5 thou/uL (0.0-0.7); #Lymphocytes 2.6 thou/uL (1.20-3.40); #Monocytes 0.8 thou/uL (0.11-0.59); #Neutrophils 5.2 thou/uL (1.40-6.50)
[2016-07-20 15:18] LABS: BUN (Urea Nitrogen) 10 mg/dL (9.8-20.1); Bilirubin, Total 0.3 mg/dL (0.2-1.2); Calc. Creatinine Clearance 0 mL/min (70-130); Calcium 8.7 mg/dL (7.8-10.44); Carbon Dioxide 26 mmol/L (23-31); Chloride 102 mmol/L (98-107); Estimated GFR-MDRD 70; Glucose 213 mg/dL (80-115); Potassium 4.2 mmol/L (3.5-5.1); Sodium 137 mmol/L (136-145)
[2016-07-20 15:19] LABS: ALT (SGPT) 9 U/L (8-55); AST (SGOT) 8 U/L (5-34); Albumin 3.7 g/dL (3.4-4.8); Alkaline Phosphatase 61 U/L (40-150); CK (CPK) 125 U/L (29-168); Globulin 3.3 g/dL (2.4-3.5)
[2016-07-20 15:20] LABS: Anion Gap 14 mmol/L (10-20)
== END 2016-07-20 16:20 | disposition home or self-care (01) ==
LOC: BURERS 14:25
DX: Z04.3 Encounter for examination and observation following other accident (principal); I11.0 Hypertensive heart disease with heart failure; I50.9 Heart failure, unspecified; I25.10 Atherosclerotic heart disease of native coronary artery without angina pectoris; J44.9 Chronic obstructive pulmonary disease, unspecified; F32.9 Major depressive disorder, single episode, unspecified; F17.210 Nicotine dependence, cigarettes, uncomplicated; W05.1XXA Fall from non-moving nonmotorized scooter, initial encounter
CPT/HCPCS: 36415; 36416; 80053; 82550; 85025; 93005

== ENCOUNTER 2016-07-30 08:31 | Outpatient (CLI) | payer MEDICARE, OTHER ==
--- NOTE | 2016-07-30 11:29 | ULT ---
PELVIC ULTRASOUND WITH CURRIE SCALE DOPPLER COLOR FLOW IMAGING WITH SPECTRAL ANALYSIS: CLINICAL HISTORY: Left pelvic mass demonstrated by preceding CT. Transvaginal pelvic ultrasound. FINDINGS: Within the left adnexal, there is a complex, septated cystic lesion with internal increased echogeni city measuring nearly 7 cm in diameter. This corresponds to abnormality on preceding CT. The patie nt is status post hysterectomy. The right ovary is not visualized. No significant free pelvic fluid. IMPRESSION: Complex cystic lesion of the left hemipelvis. Recommend gynecologic consultation, as neoplastic pro cess is the diagnosis of exclusion in a patient of this age. CODE T POS: [facility]
--- NOTE | 2016-07-30 11:46 | ULT ---
ABDOMINAL ULTRASOUND: Clinical history: Gallbladder distention. FINDINGS: There are low level echos within the gallbladder lumen. There is no discrete gallbladder wall thicke uma or pericholecystic edema. The liver is prominent in size at 20 cm in length. Mild dilatation of the common duct at 9 mm. No acute pathology of the kidneys or spleen. No ascites. There is atherosc lerosis of the imaged portions of the aorta. IMPRESSION: 1. Cholelithiasis and/or gallbladder sludge. 2. Mild biliary ductal dilatation. Correlate with laboratory values to exclude biliary obstructive p rocess. 3. Prominent sized liver. Correlate clinically. POS: [facility]
== END 2016-07-30 08:32 | disposition home or self-care (01) ==
LOC: BURULT 08:31
PROVIDERS: ATTEND Family Medicine
DX: N94.9 Unspecified condition associated with female genital organs and menstrual cycle (principal); K80.20 Calculus of gallbladder without cholecystitis without obstruction; K83.8 Other specified diseases of biliary tract
CPT/HCPCS: 76700; 76856

== ENCOUNTER 2016-08-16 10:29 | Emergency (ER) | payer MEDICARE, OTHER ==
[2016-08-16 11:08] LABS: #Basophils 0.1 thou/uL (0.0-0.2); #Eosinphils 0.3 thou/uL (0.0-0.7); #Lymphocytes 2.5 thou/uL (1.20-3.40); #Monocytes 0.6 thou/uL (0.11-0.59); #Neutrophils 5.6 thou/uL (1.40-6.50); %Basophils 0.6 % (0.0-1.0); %Eosinophils 3.4 % (0.0-10.0); %Lymphocytes 27.5 % (21.0-51.0); %Monocytes 6.5 % (0.0-10.0); %Neutrophils 62.1 % (42.0-75.0); Hemoglobin 12.6 g/dL (12.0-16.0); Mean Corpuscular HGB CONC 31.6 g/dL (32.0-36.0); Mean Corpuscular Hemoglobin 28.5 pg (27.0-31.0); Mean Platelet Volume 8.9 fL (7.4-10.4); Platelet Count 187 thou/uL (130-400); RBC Distribution Width 15.5 % (11.5-14.5); Red Blood Cell (RBC) Count 4.43 mill/uL (4.20-5.40)
[2016-08-16 11:15] LABS: INR-International Normal Ratio 1.2; PTT 30.7 SEC (22.9-36.1)
[2016-08-16 11:24] LABS: ALT (SGPT) 6 U/L (8-55); AST (SGOT) 5 U/L (5-34); Albumin 3.6 g/dL (3.4-4.8); Alkaline Phosphatase 66 U/L (40-150); Anion Gap 13 mmol/L (10-20); BUN (Urea Nitrogen) 9 mg/dL (9.8-20.1); Bilirubin, Total 0.3 mg/dL (0.2-1.2); Calc. Creatinine Clearance 0 mL/min (70-130); Calcium 8.6 mg/dL (7.8-10.44); Carbon Dioxide 24 mmol/L (23-31); Chloride 101 mmol/L (98-107); Estimated GFR-MDRD 77; Glucose 191 mg/dL (80-115); Potassium 3.8 mmol/L (3.5-5.1); Protein, Total 6.6 g/dL (6.0-8.3); Sodium 134 mmol/L (136-145)
--- NOTE | 2016-08-16 12:36 | CT ---
CT BRAIN WITHOUT CONTRAST: Date: 08/16/16 HISTORY: Injury. Fall from standing. COMPARISON: CT brain dated 04/12/16. FINDINGS: Exam limited due to motion artifact. Old lacunar infarct of the left basal ganglia. No acute territorial infarction. There is flow within the right maxillary sinus. There is a right frontal soft tissue contusion. The underlying calvarium is intact. IMPRESSION: 1. No acute intracranial abnormality. 2. Right frontal scalp contusion with intact underlying calvarium. 3. Small volume fluid in the right maxillary sinus, incompletely evaluated. If there is concern for hemorrhage, CT of the face is recommended. POS: [facility]
--- NOTE | 2016-08-16 12:45 | CT ---
CT FACE WITHOUT CONTRAST: Date: 08/16/16 HISTORY: Fall from standing. COMPARISON: None. FINDINGS: There is a right frontal superficial soft tissue contusion. There is mild bilateral exophthalmos. No retrobulbar hematoma is appreciated. No intraconal or extraconal abnormality. The lens is intact. Globe is unremarkable. The medial orbital stanton, lateral orbital stanton, orbital floors, and maxillary stanton are intact. The zygoma is intact bilaterally. Zygomatic arch is intact. Temporomandibular joints are intact with moderate degenerative disease. Mandible is intact. IMPRESSION: 1. Right frontal superficial soft tissue contusion without underlying fracture of the face. 2. Small volume right maxillary sinusitis. 3. Mild bilateral exophthalmos. 4. No retrobulbar hematoma. POS: [facility]
[2016-08-16 12:50] LABS: Bilirubin Negative (Negative); Blood, Urine Negative (Negative); Clarity Clear (Clear); Glucose, Urine (Dipstick) Negative (Negative); Leukocyte Negative (Negative); Nitrite Negative (Negative); Protein, Urine (Dipstick) 100 mg/dL (Neg-Trace); Specific Gravity, Urine 1.015 (1.005-1.030)
[2016-08-16 12:59] LABS: Bacteria/HPF Rare-Few HPF (None Seen); RBC/HPF None Seen HPF (0-3); Squamous Epithelial 0-3 HPF (0-3); WBC/HPF 0-3 HPF (0-3)
[2016-08-16] MEDS ORDERED: Ketorolac Tromethamine 30 MG/ML VIAL ONE (13:56)
--- NOTE | 2016-08-16 21:23 | RAD ---
RIGHT HIP TWO VIEWS: Date: 08-16-16 The study was done for evaluation following trauma. FINDINGS: The subcapital portion of the femoral neck is not seen exceptionally well. In spite of this, I canno t confirm a fracture. The white line seen in the subcapital region is probably the remnant of the ep iphysis. The trochanters appear intact. The pubic ring appears intact. The joint space is minimally narrowed and there may be some osteophytes beginning to form. IMPRESSION: I cannot confirm a fracture at this time. If clinical suspicion of such is high, then a CT would be needed to remove all doubt. POS: [facility]
--- NOTE | 2016-08-16 21:24 | RAD ---
RIGHT KNEE FOUR VIEWS: Date: 08-16-16 FINDINGS: Degenerative changes are present consisting of medial joint space narrowing and osteophytes. There i s probably a central osteophyte as well. No large joint effusion was seen. Some tiny patellofemoral osteophytes were apparent. No fracture or acute bony change was seen. IMPRESSION: Osteoarthritis of the knee. POS: [facility]
--- NOTE | 2016-08-16 21:26 | RAD ---
PORTABLE CHEST: Date: 08-16-16 An AP portable film at 1202 is compared with a 04-12-16 portable film. FINDINGS: Moderate cardiomegaly is about the same. The vessels are slightly prominent today. The patient is tu rned which accentuates some of the left basilar markings. A better centered film would be needed to rule out any infiltrate here. There are no large effusions or lobar consolidations. IMPRESSION: Cardiomegaly. Mild vascular prominence. POS: [facility]
== END 2016-08-16 14:33 | disposition short-term general hospital (02) ==
LOC: BURERS 10:29
DX: S72.001A Fracture of unspecified part of neck of right femur, initial encounter for closed fracture (principal); S00.83XA Contusion of other part of head, initial encounter; S00.03XA Contusion of scalp, initial encounter; S80.211A Abrasion, right knee, initial encounter; I11.0 Hypertensive heart disease with heart failure; I50.9 Heart failure, unspecified; I25.10 Atherosclerotic heart disease of native coronary artery without angina pectoris; G20 Parkinson's disease; J44.9 Chronic obstructive pulmonary disease, unspecified; J45.909 Unspecified asthma, uncomplicated; F32.9 Major depressive disorder, single episode, unspecified; F17.210 Nicotine dependence, cigarettes, uncomplicated; Z86.73 Personal history of transient ischemic attack (TIA), and cerebral infarction without residual deficits; Z79.2 Long term (current) use of antibiotics; Z79.899 Other long term (current) drug therapy; Z79.84 Long term (current) use of oral hypoglycemic drugs; W19.XXXA Unspecified fall, initial encounter
CPT/HCPCS: 36415; 51702; 70450; 70486; 71010; 80053; 81003; 81015; 85025; 85610; 85730; 87086; 93005; 94760; 96361; 96372; 96374; J1885; J2270

== ENCOUNTER 2016-08-18 12:10 | Inpatient (IN) | payer MEDICARE, OTHER ==
[2016-08-18] MEDS ORDERED: Meclizine HCl 25 MG TAB PO PRN (16:24)
[2016-08-18 18:35] LABS: Hemoglobin 13.3 g/dL (12.0-16.0); Platelet Count 158 thou/uL (130-400)
[2016-08-18] MEDS: Acetaminophen 500 MG TAB PO SCH ×2 (18:44→22:05)
[2016-08-18] MEDS: traMADol HCl 50 MG TAB PO PRN (18:46)
[2016-08-18] MEDS: Mometasone/Formoterol 60 PUFF AER INH SCH (18:48)
[2016-08-18] MEDS: Gabapentin 300 MG CAP PO SCH (21:56)
[2016-08-18] MEDS: FLUoxetine HCl 10 MG CAP PO SCH (21:56)
[2016-08-18] MEDS: Simvastatin 20 MG TAB PO SCH (21:57)
[2016-08-18] MEDS: Lisinopril 10 MG TAB PO SCH (21:59)
[2016-08-18] MEDS: Primidone 50 MG TAB PO SCH (21:59)
[2016-08-18] MEDS: Carvedilol 25 MG TAB PO SCH (22:03)
[2016-08-18] MEDS: Amitriptyline HCl 10 MG TAB PO SCH (22:05)
[2016-08-18] MEDS: Levemir Flexpen 100 UNITS/ML PEN SC SCH (22:06)
[2016-08-18] MEDS: HumaLOG 300 UNITS/3 ML VIAL SC SCH (22:07)
[2016-08-19] MEDS: Nystatin Powder 15 GM BOT TOP PRN (00:14)
[2016-08-19] MEDS: traMADol HCl 50 MG TAB PO PRN (00:44)
[2016-08-19] MEDS: Acetaminophen 500 MG TAB PO SCH ×4 (05:35→21:46)
[2016-08-19] MEDS: Enoxaparin Sodium 30 MG/0.3 ML SYRINGE SC SCH (05:36)
[2016-08-19] MEDS: Mometasone/Formoterol 60 PUFF AER INH SCH ×2 (05:36→20:04)
[2016-08-19] MEDS: FLUoxetine HCl 10 MG CAP PO SCH ×3 (08:43→21:28)
[2016-08-19] MEDS: Potassium Chloride 10 MEQ TAB PO SCH (08:43)
[2016-08-19] MEDS: Carvedilol 25 MG TAB PO SCH ×2 (08:43→21:25)
[2016-08-19] MEDS: Furosemide 40 MG TAB PO SCH (08:43)
[2016-08-19] MEDS: Primidone 50 MG TAB PO SCH ×2 (08:44→21:28)
[2016-08-19] MEDS: Oxybutynin Chloride 5 MG TAB PO SCH (08:44)
[2016-08-19] MEDS: Multivit, Therapeutic 1 TAB PO SCH (08:45)
[2016-08-19] MEDS: Gabapentin 300 MG CAP PO SCH ×3 (08:45→21:25)
[2016-08-19] MEDS: Lisinopril 10 MG TAB PO SCH ×2 (08:46→21:26)
[2016-08-19] MEDS: Levemir Flexpen 100 UNITS/ML PEN SC SCH ×2 (08:51→21:35)
[2016-08-19] MEDS: HumaLOG 300 UNITS/3 ML VIAL SC SCH ×2 (09:12→21:34)
[2016-08-19] MEDS: Simvastatin 20 MG TAB PO SCH (21:28)
[2016-08-19] MEDS: Amitriptyline HCl 10 MG TAB PO SCH (21:29)
[2016-08-20] MEDS: Acetaminophen 500 MG TAB PO SCH ×4 (04:58→22:49)
[2016-08-20 05:25] LABS: Hemoglobin 12.1 g/dL (12.0-16.0); Platelet Count 174 thou/uL (130-400)
[2016-08-20 05:35] LABS: Calc. Creatinine Clearance 0 mL/min (70-130); Estimated GFR-MDRD Greater than 90
[2016-08-20] MEDS: Enoxaparin Sodium 30 MG/0.3 ML SYRINGE SC SCH (06:04)
[2016-08-20] MEDS: Mometasone/Formoterol 60 PUFF AER INH SCH ×2 (06:09→18:35)
[2016-08-20] MEDS: Levemir Flexpen 100 UNITS/ML PEN SC SCH ×2 (09:30→21:31)
[2016-08-20] MEDS: Gabapentin 300 MG CAP PO SCH ×3 (09:31→21:20)
[2016-08-20] MEDS: Oxybutynin Chloride 5 MG TAB PO SCH (09:32)
[2016-08-20] MEDS: Primidone 50 MG TAB PO SCH ×2 (09:32→21:20)
[2016-08-20] MEDS: Carvedilol 25 MG TAB PO SCH ×2 (09:33→21:24)
[2016-08-20] MEDS: Lisinopril 10 MG TAB PO SCH ×2 (09:33→21:23)
[2016-08-20] MEDS: Potassium Chloride 10 MEQ TAB PO SCH (09:34)
[2016-08-20] MEDS: Cephalexin 250 MG CAP PO SCH ×2 (09:34→21:23)
[2016-08-20] MEDS: FLUoxetine HCl 10 MG CAP PO SCH ×3 (09:34→21:24)
[2016-08-20] MEDS: Furosemide 40 MG TAB PO SCH (09:35)
[2016-08-20] MEDS: Multivit, Therapeutic 1 TAB PO SCH (09:35)
[2016-08-20] MEDS: HumaLOG 300 UNITS/3 ML VIAL SC SCH ×2 (09:46→21:31)
[2016-08-20] MEDS: traMADol HCl 50 MG TAB PO PRN (14:38)
[2016-08-20 15:29] VITALS: BMI 46.0
[2016-08-20] MEDS: diphenhydrAMINE HCl 25 MG CAP PO PRN (18:35)
[2016-08-20] MEDS: Simvastatin 20 MG TAB PO SCH (21:20)
[2016-08-20] MEDS: Amitriptyline HCl 10 MG TAB PO SCH (21:37)
[2016-08-21] MEDS: Acetaminophen 500 MG TAB PO SCH ×4 (04:38→22:38)
[2016-08-21 05:18] LABS: Hemoglobin 11.9 g/dL (12.0-16.0); Platelet Count 179 thou/uL (130-400)
[2016-08-21] MEDS: Mometasone/Formoterol 60 PUFF AER INH SCH ×2 (06:05→18:43)
[2016-08-21] MEDS: Enoxaparin Sodium 30 MG/0.3 ML SYRINGE SC SCH (06:05)
[2016-08-21] MEDS: Oxybutynin Chloride 5 MG TAB PO SCH (08:41)
[2016-08-21] MEDS: Primidone 50 MG TAB PO SCH ×2 (08:42→21:09)
[2016-08-21] MEDS: Furosemide 40 MG TAB PO SCH (08:42)
[2016-08-21] MEDS: Gabapentin 300 MG CAP PO SCH ×3 (08:43→21:06)
[2016-08-21] MEDS: FLUoxetine HCl 10 MG CAP PO SCH ×3 (08:43→21:07)
[2016-08-21] MEDS: Multivit, Therapeutic 1 TAB PO SCH (08:43)
[2016-08-21] MEDS: Carvedilol 25 MG TAB PO SCH ×2 (08:44→21:12)
[2016-08-21] MEDS: Potassium Chloride 10 MEQ TAB PO SCH (08:44)
[2016-08-21] MEDS: Cephalexin 250 MG CAP PO SCH ×2 (08:44→21:08)
[2016-08-21] MEDS: Lisinopril 10 MG TAB PO SCH ×2 (08:45→21:10)
[2016-08-21] MEDS: Levemir Flexpen 100 UNITS/ML PEN SC SCH ×2 (08:49→21:02)
[2016-08-21] MEDS: HumaLOG 300 UNITS/3 ML VIAL SC SCH ×2 (08:50→21:03)
[2016-08-21] MEDS: traMADol HCl 50 MG TAB PO PRN ×2 (10:39→21:19)
[2016-08-21] MEDS: Nystatin Powder 15 GM BOT TOP PRN (10:41)
[2016-08-21] MEDS: diphenhydrAMINE HCl 25 MG CAP PO PRN (15:25)
[2016-08-21] MEDS: Benzonatate 100 MG CAP PO PRN (18:50)
[2016-08-21] MEDS: Amitriptyline HCl 10 MG TAB PO SCH (21:04)
[2016-08-21] MEDS: Simvastatin 20 MG TAB PO SCH (21:11)
[2016-08-22] MEDS: Acetaminophen 500 MG TAB PO SCH ×4 (04:49→21:55)
[2016-08-22 05:08] LABS: Hemoglobin 12.9 g/dL (12.0-16.0); Platelet Count 144 thou/uL (130-400)
[2016-08-22] MEDS: Enoxaparin Sodium 30 MG/0.3 ML SYRINGE SC SCH (05:59)
[2016-08-22] MEDS: Mometasone/Formoterol 60 PUFF AER INH SCH ×2 (06:01→18:09)
[2016-08-22] MEDS: Potassium Chloride 10 MEQ TAB PO SCH (08:45)
[2016-08-22] MEDS: Gabapentin 300 MG CAP PO SCH ×3 (08:45→21:45)
[2016-08-22] MEDS: Primidone 50 MG TAB PO SCH ×2 (08:46→21:46)
[2016-08-22] MEDS: Oxybutynin Chloride 5 MG TAB PO SCH (08:46)
[2016-08-22] MEDS: Cephalexin 250 MG CAP PO SCH ×2 (08:46→21:46)
[2016-08-22] MEDS: Multivit, Therapeutic 1 TAB PO SCH (08:47)
[2016-08-22] MEDS: FLUoxetine HCl 10 MG CAP PO SCH ×3 (08:47→21:46)
[2016-08-22] MEDS: Carvedilol 25 MG TAB PO SCH ×2 (08:47→21:49)
[2016-08-22] MEDS: Furosemide 40 MG TAB PO SCH (08:47)
[2016-08-22] MEDS: Lisinopril 10 MG TAB PO SCH ×2 (08:48→21:48)
[2016-08-22] MEDS: Levemir Flexpen 100 UNITS/ML PEN SC SCH ×2 (08:52→21:58)
[2016-08-22] MEDS: HumaLOG 300 UNITS/3 ML VIAL SC SCH (08:53)
[2016-08-22] MEDS: Benzonatate 100 MG CAP PO PRN (08:59)
[2016-08-22] MEDS: Mupirocin 2% Ointment 22 GM Tube TOP SCH ×3 (09:57→21:50)
[2016-08-22] MEDS: Nystatin Powder 15 GM BOT TOP PRN ×2 (09:57→10:05)
[2016-08-22] MEDS ORDERED: Acetaminophen 500 MG TAB ONE (10:54)
[2016-08-22] MEDS: traMADol HCl 50 MG TAB PO PRN ×2 (10:57→21:56)
[2016-08-22] MEDS ORDERED: Loperamide HCl 2 MG CAP PO PRN ×2 (13:49)
[2016-08-22] MEDS ORDERED: HumaLOG 300 UNITS/3 ML VIAL SC SCH (21:00)
[2016-08-22] MEDS: Simvastatin 20 MG TAB PO SCH (21:47)
[2016-08-22] MEDS: Amitriptyline HCl 10 MG TAB PO SCH (21:49)
[2016-08-22] MEDS: diphenhydrAMINE HCl 25 MG CAP PO PRN (23:32)
[2016-08-23] MEDS: Enoxaparin Sodium 30 MG/0.3 ML SYRINGE SC SCH (05:35)
[2016-08-23] MEDS: Acetaminophen 500 MG TAB PO SCH ×4 (05:35→22:39)
[2016-08-23] MEDS: Mometasone/Formoterol 60 PUFF AER INH SCH ×2 (06:12→18:36)
[2016-08-23] MEDS ORDERED: HumaLOG 300 UNITS/3 ML VIAL SC PRN (07:48)
[2016-08-23] MEDS ORDERED: Dextrose 5% in Water 1,000 ML IV PRN (08:03)
[2016-08-23] MEDS ORDERED: Dextrose 50% Abboject 50 ML SYRINGE IVP PRN (08:04)
[2016-08-23] MEDS: Cephalexin 250 MG CAP PO SCH ×2 (08:41→20:57)
[2016-08-23] MEDS: Potassium Chloride 10 MEQ TAB PO SCH (08:41)
[2016-08-23] MEDS: Furosemide 40 MG TAB PO SCH (08:42)
[2016-08-23] MEDS: Gabapentin 300 MG CAP PO SCH ×3 (08:42→21:00)
[2016-08-23] MEDS: FLUoxetine HCl 10 MG CAP PO SCH ×3 (08:42→20:59)
[2016-08-23] MEDS: Lisinopril 10 MG TAB PO SCH ×2 (08:43→21:01)
[2016-08-23] MEDS: Oxybutynin Chloride 5 MG TAB PO SCH (08:43)
[2016-08-23] MEDS: Primidone 50 MG TAB PO SCH ×2 (08:44→20:58)
[2016-08-23] MEDS: Multivit, Therapeutic 1 TAB PO SCH (08:45)
[2016-08-23] MEDS: Carvedilol 25 MG TAB PO SCH ×2 (08:45→21:02)
[2016-08-23] MEDS: Floranex Packet PO SCH (08:46)
[2016-08-23] MEDS: Mupirocin 2% Ointment 22 GM Tube TOP SCH ×3 (08:47→21:03)
[2016-08-23] MEDS: Levemir Flexpen 100 UNITS/ML PEN SC SCH ×2 (08:58→21:45)
[2016-08-23] MEDS ORDERED: HumaLOG 300 UNITS/3 ML VIAL SC SCH (09:00)
[2016-08-23] MEDS: Benzonatate 100 MG CAP PO PRN ×2 (10:04→18:40)
[2016-08-23] MEDS: traMADol HCl 50 MG TAB PO PRN ×2 (10:10→22:40)
[2016-08-23] MEDS: Simvastatin 20 MG TAB PO SCH (21:00)
[2016-08-23] MEDS: Amitriptyline HCl 10 MG TAB PO SCH (21:02)
[2016-08-23] MEDS: diphenhydrAMINE HCl 25 MG CAP PO PRN (22:39)
[2016-08-24] MEDS: Acetaminophen 500 MG TAB PO SCH ×2 (04:34→10:56)
[2016-08-24 04:53] LABS: Hemoglobin 12.5 g/dL (12.0-16.0); Platelet Count 152 thou/uL (130-400)
[2016-08-24] MEDS: Mometasone/Formoterol 60 PUFF AER INH SCH (06:09)
[2016-08-24] MEDS: Enoxaparin Sodium 30 MG/0.3 ML SYRINGE SC SCH (06:10)
[2016-08-24 06:18] VITALS: BP 114/55; TEMP 98.2
[2016-08-24] MEDS ORDERED: diphenhydrAMINE HCl 25 MG CAP PO PRN (09:25)
[2016-08-24] MEDS ORDERED: Meclizine HCl 25 MG TAB PO PRN (09:26)
[2016-08-24] MEDS: Lisinopril 10 MG TAB PO SCH (09:29)
[2016-08-24] MEDS: FLUoxetine HCl 10 MG CAP PO SCH (09:30)
[2016-08-24] MEDS: Floranex Packet PO SCH ×2 (09:30→09:32)
[2016-08-24] MEDS: Potassium Chloride 10 MEQ TAB PO SCH (09:30)
[2016-08-24] MEDS: Primidone 50 MG TAB PO SCH (09:30)
[2016-08-24] MEDS: Cephalexin 250 MG CAP PO SCH (09:30)
[2016-08-24] MEDS: Carvedilol 25 MG TAB PO SCH (09:31)
[2016-08-24] MEDS: Multivit, Therapeutic 1 TAB PO SCH (09:32)
[2016-08-24] MEDS: Furosemide 40 MG TAB PO SCH (09:32)
[2016-08-24] MEDS: Mupirocin 2% Ointment 22 GM Tube TOP SCH (09:32)
[2016-08-24] MEDS: Oxybutynin Chloride 5 MG TAB PO SCH (09:32)
[2016-08-24] MEDS: Gabapentin 300 MG CAP PO SCH (09:32)
[2016-08-24] MEDS: Levemir Flexpen 100 UNITS/ML PEN SC SCH (09:33)
[2016-08-24] MEDS: traMADol HCl 50 MG TAB PO PRN (10:59)
--- NOTE | 2016-08-24 23:34 | DIS ---
DATE OF ADMISSION: 08/18/2016 DATE OF DISCHARGE: 08/24/2016 ADMISSION DIAGNOSES: Physical deconditioning, history of falls, right hip contusion, diabetes mellitus type 2, obstructive sleep apnea, and hypertension. SECONDARY DIAGNOSES: Include hyperlipidemia, depression, and obesity. PROCEDURES: None. HOSPITAL COURSE: A 70-year-old female who presented to participate with physical therapy, occupational therapy, status post short admission at [facility]. She had initially presented to the [facility], status post ground level fall at home with the concern that she had a possible fracture of her right hip. Upon further evaluation at [facility], it was determined that she simply had a right hip contusion and did not need surgical intervention. Her pain remained great enough to alter her ability to satisfactorily ambulate, which she normally does so with the assistance of her walker. The patient lives alone and thus needed to transition for skilled care with PT, OT. The patient was able to successfully meet the goals set forth for her by PT, OT and is now stable to be discharged back to her home setting, where she has [facility] to participate with further PT, OT. During her stay, she did have a hypoglycemic episode with blood sugar down to the 50s, which was attributed to receiving too much Humalog instead of the sliding scale that she is typically on. She received a 12 unit dose, which had been carried over from her short stay at [facility]. After transitioning to her usual sliding scale Humalog mealtime dosing she had no further complications regarding her glycemic control. She is stable at this time to return home as planned. DISPOSITION: We will discharge home with further PT, OT via [facility]. She will follow up with myself in the clinic next week. DISCHARGE MEDICATIONS: Include Tylenol 1 gram q.6 hours p.r.n., DuoNebs q.4 hours p.r.n., amitriptyline 10 mg p.o. at bedtime, carvedilol 12.5 mg p.o. b.i.d., fluoxetine 10 mg p.o. t.i.d., Lasix 40 mg p.o. daily, gabapentin 600 mg p.o. t.i.d., glipizide XL 5 mg p.o. daily, Levemir 15 units b.i.d., Humalog sliding scale, lisinopril 10 mg p.o. b.i.d., Meclizine 12.5 mg p.o. b.i.d. p.r.n., Dulera 2 puffs inhaled b.i.d., Nystatin topical powder, oxybutynin 10 mg p.o. daily, Protonix 40 mg p.o. daily, potassium chloride 10 mEq p.o. daily, primidone 150 mg a.m., 100 mg at bedtime, Ranexa 500 mg p.o. b.i.d., simvastatin 10 mg p.o. at bedtime, tramadol 50 mg p.o. q.6 hours p.r.n. MTDD
== END 2016-08-24 13:20 | disposition home health service (06) | DRG 949 ==
LOC: BURMED 13:14
PROVIDERS: ADMIT Family Medicine; ATTEND Family Medicine
DX: S70.01XD Contusion of right hip, subsequent encounter (principal); Z68.42 Body mass index [BMI] 45.0-49.9, adult; E11.649 Type 2 diabetes mellitus with hypoglycemia without coma; R53.81 Other malaise; W18.30XD Fall on same level, unspecified, subsequent encounter; Z91.81 History of falling; T38.3X5A Adverse effect of insulin and oral hypoglycemic [antidiabetic] drugs, initial encounter; R26.2 Difficulty in walking, not elsewhere classified; Z79.4 Long term (current) use of insulin; Z79.84 Long term (current) use of oral hypoglycemic drugs; G47.33 Obstructive sleep apnea (adult) (pediatric); I10 Essential (primary) hypertension; E78.5 Hyperlipidemia, unspecified; F32.9 Major depressive disorder, single episode, unspecified; E66.9 Obesity, unspecified
CPT/HCPCS: 36415; 36416; 82565; 85014; 85018; 85049; 94664; J1650; J1815; J7620

== ENCOUNTER 2016-09-28 12:19 | Outpatient (CLI) | payer MEDICARE, OTHER ==
[2016-09-28 12:40] LABS: #Basophils 0.1 thou/uL (0.0-0.2); #Eosinphils 0.3 thou/uL (0.0-0.7); #Monocytes 0.7 thou/uL (0.11-0.59); #Neutrophils 8.8 thou/uL (1.40-6.50); %Basophils 0.8 % (0.0-1.0); %Eosinophils 2.6 % (0.0-10.0); %Lymphocytes 22.8 % (21.0-51.0); %Monocytes 5.6 % (0.0-10.0); %Neutrophils 68.2 % (42.0-75.0); Hemoglobin 12.9 g/dL (12.0-16.0); Mean Corpuscular HGB CONC 32.4 g/dL (32.0-36.0); Mean Corpuscular Hemoglobin 29.3 pg (27.0-31.0); Mean Corpuscular Volume 90.7 fl (81.0-99.0); Mean Platelet Volume 8.1 fL (7.4-10.4); Platelet Count 195 thou/uL (130-400); RBC Distribution Width 16.4 % (11.5-14.5); Red Blood Cell (RBC) Count 4.41 mill/uL (4.20-5.40); White Blood Cell (WBC) Count 12.9 thou/uL (4.8-10.8)
[2016-09-28 12:41] LABS: ALT (SGPT) 7 U/L (8-55); AST (SGOT) 7 U/L (5-34); Albumin 3.8 g/dL (3.4-4.8); Alkaline Phosphatase 59 U/L (40-150); Anion Gap 13 mmol/L (10-20); BUN (Urea Nitrogen) 8 mg/dL (9.8-20.1); Bilirubin, Total 0.2 mg/dL (0.2-1.2); Calc. Creatinine Clearance 0 mL/min (70-130); Calcium 8.6 mg/dL (7.8-10.44); Carbon Dioxide 27 mmol/L (23-31); Chloride 98 mmol/L (98-107); Estimated GFR-MDRD 79; Glucose 134 mg/dL (80-115); Potassium 4.5 mmol/L (3.5-5.1); Protein, Total 6.8 g/dL (6.0-8.3); Sodium 133 mmol/L (136-145)
== END 2016-09-28 12:20 | disposition home or self-care (01) ==
LOC: HPCALD 12:19
PROVIDERS: ATTEND Family Medicine
DX: I25.10 Atherosclerotic heart disease of native coronary artery without angina pectoris (principal); J40 Bronchitis, not specified as acute or chronic; I89.0 Lymphedema, not elsewhere classified
CPT/HCPCS: 36415; 80053; 83880; 85025

== ENCOUNTER 2016-10-18 12:20 | Emergency (ER) | payer MEDICARE, OTHER ==
--- NOTE | 2016-10-18 13:18 | CT ---
CT HEAD WITHOUT IV CONTRAST: Date: 10-18-16 History: Altered mental status and right sided weakness with onset of symptoms this morning. History of stroke in 2013. Comparison: 08-16-16 FINDINGS: Again noted is remote lacunar infarction in the left basal ganglia with mild chronic small vessel is chemic changes also again seen. There is no evidence of an acute cortical infarction, hemorrhage, ma ss effect, or midline shift. Ventricular system is normal in size, shape, and position. Visualized p aranasal sinuses and mastoid air cells are clear. Calvarial structures are intact. No other interval change. IMPRESSION: 1. No acute intracranial abnormalities demonstrated. 2. Remote lacunar infarction left basal ganglia. 3. Mild chronic small vessel ischemic changes. POS: [facility]
[2016-10-18 13:23] LABS: #Basophils 0.1 thou/uL (0.0-0.2); #Eosinphils 0.3 thou/uL (0.0-0.7); #Monocytes 0.6 thou/uL (0.11-0.59); #Neutrophils 6.6 thou/uL (1.40-6.50); %Basophils 0.7 % (0.0-1.0); %Eosinophils 3.2 % (0.0-10.0); %Lymphocytes 28.1 % (21.0-51.0); %Monocytes 5.7 % (0.0-10.0); %Neutrophils 62.4 % (42.0-75.0); Mean Corpuscular HGB CONC 32.7 g/dL (32.0-36.0); Mean Corpuscular Hemoglobin 28.8 pg (27.0-31.0); Mean Platelet Volume 9.5 fL (7.4-10.4); Platelet Count 152 thou/uL (130-400); RBC Distribution Width 16.1 % (11.5-14.5); Red Blood Cell (RBC) Count 4.52 mill/uL (4.20-5.40); White Blood Cell (WBC) Count 10.6 thou/uL (4.8-10.8)
[2016-10-18 13:30] LABS: INR-International Normal Ratio 1.2; PTT 29.7 SEC (22.9-36.1); Prothrombin Time 15.2 SEC (12.0-14.7)
[2016-10-18 13:34] LABS: Bilirubin Negative (Negative); Blood, Urine Negative (Negative); Clarity Cloudy (Clear); Glucose, Urine (Dipstick) Negative (Negative); Leukocyte Trace (Negative); Nitrite Negative (Negative); Protein, Urine (Dipstick) 30 mg/dL (Neg-Trace); Specific Gravity, Urine 1.015 (1.005-1.030); pH, Urine 7.5 (5.0-9.0)
[2016-10-18 13:43] LABS: Troponin I 0.012 ng/mL (< 0.028)
[2016-10-18 13:52] LABS: Bacteria/HPF 1+ HPF (None Seen); RBC/HPF 0-3 HPF (0-3); Squamous Epithelial 0-3 HPF (0-3)
[2016-10-18 13:54] LABS: Crystals/HPF 2+ AMORPH PHOS HPF (Negative)
[2016-10-18 13:56] LABS: ALT (SGPT) 8 U/L (8-55); AST (SGOT) 8 U/L (5-34); Albumin 3.5 g/dL (3.4-4.8); Alkaline Phosphatase 55 U/L (40-150); Anion Gap 12 mmol/L (10-20); BUN (Urea Nitrogen) 14 mg/dL (9.8-20.1); Bilirubin, Total 0.2 mg/dL (0.2-1.2); Calc. Creatinine Clearance 0 mL/min (70-130); Calcium 9.2 mg/dL (7.8-10.44); Carbon Dioxide 24 mmol/L (23-31); Chloride 104 mmol/L (98-107); Estimated GFR-MDRD 80; Globulin 3.3 g/dL (2.4-3.5); Glucose 150 mg/dL (80-115); Potassium 4.2 mmol/L (3.5-5.1); Protein, Total 6.8 g/dL (6.0-8.3); Sodium 136 mmol/L (136-145)
== END 2016-10-18 14:27 | disposition home or self-care (01) ==
LOC: BURERS 12:20
DX: R20.2 Paresthesia of skin (principal); I11.0 Hypertensive heart disease with heart failure; I50.9 Heart failure, unspecified; I25.10 Atherosclerotic heart disease of native coronary artery without angina pectoris; J44.9 Chronic obstructive pulmonary disease, unspecified; G20 Parkinson's disease; F32.9 Major depressive disorder, single episode, unspecified; F17.210 Nicotine dependence, cigarettes, uncomplicated; Z86.73 Personal history of transient ischemic attack (TIA), and cerebral infarction without residual deficits; Z79.82 Long term (current) use of aspirin; Z79.84 Long term (current) use of oral hypoglycemic drugs; Z79.2 Long term (current) use of antibiotics; Z79.899 Other long term (current) drug therapy
CPT/HCPCS: 36416; 70450; 80053; 81003; 81015; 82553; 84484; 85025; 85610; 85730; 93005; 94760

== ENCOUNTER 2016-12-22 07:08 | Emergency (ER) | payer MEDICARE, OTHER, MEDICAID ==
[2016-12-22 07:37] LABS: #Basophils 0.1 thou/uL (0.0-0.2); #Eosinphils 0.4 thou/uL (0.0-0.7); #Lymphocytes 2.5 thou/uL (1.20-3.40); #Monocytes 0.8 thou/uL (0.11-0.59); #Neutrophils 6.9 thou/uL (1.40-6.50); %Basophils 0.5 % (0.0-1.0); %Eosinophils 3.5 % (0.0-10.0); %Lymphocytes 23.6 % (21.0-51.0); %Monocytes 7.2 % (0.0-10.0); %Neutrophils 65.1 % (42.0-75.0); Hemoglobin 10.5 g/dL (12.0-16.0); Mean Corpuscular HGB CONC 30.1 g/dL (32.0-36.0); Mean Corpuscular Hemoglobin 26.9 pg (27.0-31.0); Mean Corpuscular Volume 89.3 fl (81.0-99.0); Mean Platelet Volume 7.1 fL (7.4-10.4); Platelet Count 221 thou/uL (130-400); RBC Distribution Width 16.5 % (11.5-14.5); Red Blood Cell (RBC) Count 3.92 mill/uL (4.20-5.40); White Blood Cell (WBC) Count 10.5 thou/uL (4.8-10.8)
[2016-12-22 07:53] LABS: ALT (SGPT) 11 U/L (8-55); AST (SGOT) 8 U/L (5-34); Albumin 3.7 g/dL (3.4-4.8); Alkaline Phosphatase 72 U/L (40-150); Anion Gap 12 mmol/L (10-20); BUN (Urea Nitrogen) 11 mg/dL (9.8-20.1); Bilirubin, Total 0.2 mg/dL (0.2-1.2); Calc. Creatinine Clearance 0 mL/min (70-130); Carbon Dioxide 28 mmol/L (23-31); Chloride 99 mmol/L (98-107); Estimated GFR-MDRD 75; Globulin 3.4 g/dL (2.4-3.5); Glucose 275 mg/dL (80-115); Potassium 4.3 mmol/L (3.5-5.1); Protein, Total 7.1 g/dL (6.0-8.3); Sodium 135 mmol/L (136-145)
[2016-12-22] MEDS ORDERED: diphenhydrAMINE HCl 25 MG CAP ONE (08:00)
[2016-12-22] MEDS ORDERED: Ketorolac Tromethamine 30 MG/ML VIAL ONE (08:00)
[2016-12-22] MEDS ORDERED: Prochlorperazine 10 MG/2 ML VIAL ONE (08:00)
--- NOTE | 2016-12-22 16:23 | CT ---
CT OF THE BRAIN WITHOUT CONTRAST 12/22/16 Comparison is made with an 10/18/16 study. Motion artifact is present which degrades the images somewhat, particularly in the inferior portions . No bleeding, or sign of acute stroke was found. No mass, edema or other acute change was seen. the v entricular sizes are normal. Encephalomalacia from an old stroke in the left basal ganglia regions s eems no different than the prior scan. No findings to explain the patient's headache were encountere d. The visible paranasal sinuses are clear. IMPRESSION: Mildly limited study showing no acute findings. Old left sided stroke unchanged. POS: [facility]
== END 2016-12-22 12:09 | disposition home or self-care (01) ==
LOC: BURERS 07:08
DX: G43.909 Migraine, unspecified, not intractable, without status migrainosus (principal); I25.10 Atherosclerotic heart disease of native coronary artery without angina pectoris; I11.0 Hypertensive heart disease with heart failure; I50.9 Heart failure, unspecified; G20 Parkinson's disease; I69.30 Unspecified sequelae of cerebral infarction; J44.9 Chronic obstructive pulmonary disease, unspecified; F32.9 Major depressive disorder, single episode, unspecified; F17.210 Nicotine dependence, cigarettes, uncomplicated; Z79.82 Long term (current) use of aspirin; Z79.84 Long term (current) use of oral hypoglycemic drugs; Z79.899 Other long term (current) drug therapy
CPT/HCPCS: 36416; 70450; 80053; 85025; 96361; 96374; 96375; 36415-59; J0780; J1885

== ENCOUNTER 2017-02-22 08:19 | Emergency (ER) | payer MEDICARE, OTHER ==
[2017-02-22 08:50] LABS: #Basophils 0.1 thou/uL (0.0-0.2); #Eosinphils 0.4 thou/uL (0.0-0.7); #Lymphocytes 2.6 thou/uL (1.20-3.40); #Monocytes 0.7 thou/uL (0.11-0.59); #Neutrophils 6.5 thou/uL (1.40-6.50); %Basophils 0.7 % (0.0-1.0); %Eosinophils 3.8 % (0.0-10.0); %Lymphocytes 25.3 % (21.0-51.0); %Monocytes 6.7 % (0.0-10.0); %Neutrophils 63.4 % (42.0-75.0); Mean Corpuscular HGB CONC 30.3 g/dL (32.0-36.0); Mean Corpuscular Hemoglobin 24.9 pg (27.0-31.0); Mean Corpuscular Volume 82.3 fl (81.0-99.0); Mean Platelet Volume 7.5 fL (7.4-10.4); Platelet Count 222 thou/uL (130-400); RBC Distribution Width 19.1 % (11.5-14.5); Red Blood Cell (RBC) Count 4.03 mill/uL (4.20-5.40); White Blood Cell (WBC) Count 10.3 thou/uL (4.8-10.8)
[2017-02-22 09:02] LABS: ALT (SGPT) Less than 7 U/L (8-55); AST (SGOT) 6 U/L (5-34); Acetaminophen Less than 6.0 mcg/mL (10.0-30.0); Albumin 3.4 g/dL (3.4-4.8); Alcohol Less than 10 mg/dL (Less than 10); Alkaline Phosphatase 64 U/L (40-150); Anion Gap 14 mmol/L (10-20); BUN (Urea Nitrogen) 10 mg/dL (9.8-20.1); Bilirubin, Total 0.3 mg/dL (0.2-1.2); Calc. Creatinine Clearance 0 mL/min (70-130); Calcium 8.7 mg/dL (7.8-10.44); Carbon Dioxide 28 mmol/L (23-31); Chloride 95 mmol/L (98-107); Estimated GFR-MDRD 81; Globulin 3.3 g/dL (2.4-3.5); Glucose 297 mg/dL (80-115); Potassium 4.6 mmol/L (3.5-5.1); Protein, Total 6.7 g/dL (6.0-8.3); Salicylate Less than 8.0 mg/dL (15.0-30.0); Sodium 132 mmol/L (136-145)
[2017-02-22 09:09] LABS: Anisocytosis SLIGHT = 6-15 cells (100X) (0-5/hpf); MDiff Complete? YES; PLT Morphology Comment Appears Adequate
== END 2017-02-22 09:54 | disposition home or self-care (01) ==
LOC: BURERS 08:19
DX: D64.9 Anemia, unspecified (principal); G25.81 Restless legs syndrome; T42.6X5A Adverse effect of other antiepileptic and sedative-hypnotic drugs, initial encounter; E10.9 Type 1 diabetes mellitus without complications; F32.9 Major depressive disorder, single episode, unspecified; F17.210 Nicotine dependence, cigarettes, uncomplicated; I25.10 Atherosclerotic heart disease of native coronary artery without angina pectoris; J44.9 Chronic obstructive pulmonary disease, unspecified; I11.0 Hypertensive heart disease with heart failure; I50.9 Heart failure, unspecified; G20 Parkinson's disease; Z85.818 Personal history of malignant neoplasm of other sites of lip, oral cavity, and pharynx; Z79.82 Long term (current) use of aspirin; Z79.899 Other long term (current) drug therapy
CPT/HCPCS: 36416; 80053; 80307; 85025; 99283